=== PATIENT | female | born 1990 | race Caucasian/White ===

== ENCOUNTER → 2017-08-25 | Outpatient (REF) | payer OTHER | LOC: M LAB REF 13:36 | DX: Z12.4 Encounter for screening for malignant neoplasm of cervix (principal) ==

== ENCOUNTER → 2018-02-02 | Outpatient (REF) | payer OTHER ==
[2018-02-02 16:49] LABS: BASO # 0.1 10^3/uL (0.0-0.2); BASO % 0.8 % (0.0-1.0); EOS # 0.1 10^3/uL (0.0-0.50); EOS % 1.5 % (0.0-3.0); HEMATOCRIT 42.4 % (36.0-47.0); HEMOGLOBIN 13.8 g/dl (12.0-15.5); IMMATURE GRANULOCYTE % 1.8 % (0-3.0); LYMPH # 1.8 10^3/uL (1.5-6.5); LYMPH % 24.7 % (24.0-44.0); MEAN CORPUSCULAR HEMOGLOBIN 29.7 pg (27.0-33.0); MEAN CORPUSCULAR HGB CONC 32.5 g/dl (32.0-36.5); MEAN CORPUSCULAR VOLUME 91.4 fl (80.0-96.0); MONO # 0.5 10^3/uL (0.0-0.8); MONO % 6.3 % (0.0-5.0); NEUTROPHILS # 4.7 10^3/uL (1.8-7.7); NEUTROPHILS % 64.9 % (36.0-66.0); PLATELET COUNT, AUTOMATED 253 10^3/uL (150-450); RED BLOOD COUNT 4.64 10^6/uL (4.00-5.40); RED CELL DISTRIBUTION WIDTH 13.1 % (11.5-14.5); WHITE BLOOD COUNT 7.3 10^3/uL (4.0-10.0)
[2018-02-02 17:04] LABS: INR 0.93; PROTHROMBIN TIME 12.6 SECONDS (12.1-14.4)
[2018-02-02 17:05] LABS: PARTIAL THROMBOPLASTIN TIME 28.1 SECONDS (25.4-37.6)
[2018-02-02 17:09] LABS: ALBUMIN 3.8 GM/DL (3.2-5.2); ALBUMIN/GLOBULIN RATIO 1.06 (1.00-1.93); ALKALINE PHOSPHATASE 89 U/L (45-117); ALT/SGPT 26 U/L (12-78); ANION GAP 8 MEQ/L (8-16); AST/SGOT 12 U/L (7-37); BILIRUBIN,TOTAL 0.4 MG/DL (0.2-1.0); BLOOD UREA NITROGEN 13 MG/DL (7-18); CALCIUM LEVEL 9.2 MG/DL (8.5-10.1); CARBON DIOXIDE LEVEL 28 MEQ/L (21-32); CHLORIDE LEVEL 106 MEQ/L (98-107); GLOMERULAR FILTRATION RATE > 60.0 (>60); GLUCOSE, FASTING 82 MG/DL (70-100); POTASSIUM SERUM 4.2 MEQ/L (3.5-5.1); SODIUM LEVEL 142 MEQ/L (136-145); TOTAL PROTEIN 7.4 GM/DL (6.4-8.2)
== END ==
LOC: M SFHCCLAY 12:11
DX: R23.8 Other skin changes (principal)

== ENCOUNTER 2019-01-14 07:30 | Emergency (ER) | payer MEDICAID, OTHER, SELFPAY ==
[~2019-01-14] VITALS: Ht 167.6 cm; Wt 103.5 kg
[2019-01-14 09:32] LABS: BASO # 0.1 10^3/uL (0.0-0.2); BASO % 0.8 % (0.0-1.0); EOS # 0.1 10^3/uL (0.0-0.50); EOS % 1.1 % (0.0-3.0); HEMATOCRIT 40.2 % (36.0-47.0); LYMPH # 1.6 10^3/uL (1.5-4.5); LYMPH % 22.7 % (24.0-44.0); MEAN CORPUSCULAR HEMOGLOBIN 30.1 pg (27.0-33.0); MEAN CORPUSCULAR HGB CONC 32.3 g/dl (32.0-36.5); MEAN CORPUSCULAR VOLUME 93.1 fl (80.0-96.0); MONO # 0.5 10^3/uL (0.0-0.8); MONO % 6.4 % (0.0-5.0); NEUTROPHILS # 4.8 10^3/uL (1.8-7.7); NEUTROPHILS % 67.1 % (36.0-66.0); PLATELET COUNT, AUTOMATED 211 10^3/uL (150-450); RED BLOOD COUNT 4.32 10^6/uL (4.00-5.40); WHITE BLOOD COUNT 7.2 10^3/uL (4.0-10.0)
--- NOTE | 2019-01-14 10:52 | REP ---
PELVIC ULTRASOUND: Real-time sonographic evaluation of the pelvis performed utilizing transabdominal and endovaginal technique. The uterus measures 8.9 x 4.1 x 5.8 cm. Endometrial thickness is 8 mm. There is no intrauterine gestational sac seen. Right ovary measures 2.9 x 1.9 x 2.8 cm and left ovary 2.7 x 2.0 x 1.3 cm. Complex cyst area in the right ovary probably represents a complex corpus luteum 1.4 cm in diameter. No adnexal mass is seen. There is trace free fluid. There is no evidence of ovarian torsion. Differential diagnosis would include early intrauterine , missed AB or ectopic . Suggest correlation with serial quantitative beta HCG values, and followup ultrasound as necessary. Electronically Signed by Bobby Jarvis MD 01/15/2019 03:36 P
[2019-01-14 10:54] VITALS: BP 126/79
== END 2019-01-14 10:55 | disposition home or self-care (01) ==
LOC: M ED 07:30
DX: O20.0 Threatened abortion (principal); O34.80 Maternal care for other abnormalities of pelvic organs, unspecified trimester; Z86.19 Personal history of other infectious and parasitic diseases; Z87.59 Personal history of other complications of pregnancy, childbirth and the puerperium; Z88.2 Allergy status to sulfonamides

== ENCOUNTER → 2019-01-14 | Outpatient (REF) | payer MEDICAID | LOC: M LAB REF 14:04 | PROVIDERS: ATTEND Advanced Practice Midwife | DX: O03.4 Incomplete spontaneous abortion without complication (principal) ==

== ENCOUNTER → 2019-01-21 | Outpatient (CLI) | payer MEDICAID | LOC: M LAB 11:21 | PROVIDERS: ATTEND Advanced Practice Midwife | DX: O03.4 Incomplete spontaneous abortion without complication (principal) ==

== ENCOUNTER → 2019-01-28 | Outpatient (CLI) | payer MEDICAID | LOC: M LAB 07:25 | PROVIDERS: ATTEND Advanced Practice Midwife | DX: O03.4 Incomplete spontaneous abortion without complication (principal) ==

== ENCOUNTER → 2019-04-05 | Outpatient (REF) | payer OTHER ==
[2019-04-09 14:40] LABS: HPV HYBRID CAPTURE II Negative (Negative)
== END ==
LOC: M LAB REF 17:40
PROVIDERS: ATTEND Advanced Practice Midwife
DX: Z12.4 Encounter for screening for malignant neoplasm of cervix (principal)

== ENCOUNTER 2020-06-04 09:48 | Inpatient (IN) | payer OTHER ==
[~2020-06-04] VITALS: Ht 167.6 cm; Wt 116.6 kg
[2020-06-04] MEDS ORDERED: BUSP1TAB PO (09:59)
[2020-06-04] MEDS ORDERED: LORA2TAB14 PO (09:59)
[2020-06-04] MEDS ORDERED: ONDANSETRON 4MG/2ML VIAL IV ONE (10:15)
[2020-06-04] MEDS ORDERED: NS 1,000 ML IV ONE ×3 (10:15→13:30)
[2020-06-04] MEDS ORDERED: KETOROLAC 30 MG/ML 1ML VIAL IV ONE ×2 (10:15→14:30)
[2020-06-04] MEDS: MORPHINE 2 MG/ML 1ML VIAL (J2270) IV PRN ×2 (10:31→11:34)
[2020-06-04 10:56] LABS: BASO # 0.1 10^3/uL (0.0-0.2); BASO % 0.9 % (0.0-1.0); EOS # 0.1 10^3/uL (0.0-0.5); EOS % 0.5 % (0.0-3.0); HEMATOCRIT 38.6 % (36.0-47.0); HEMOGLOBIN 12.3 g/dl (12.0-15.5); LYMPH # 2.4 10^3/uL (1.5-5.0); LYMPH % 24.4 % (24.0-44.0); MEAN CORPUSCULAR HEMOGLOBIN 28.1 pg (27.0-33.0); MEAN CORPUSCULAR HGB CONC 31.9 g/dl (32.0-36.5); MEAN CORPUSCULAR VOLUME 88.1 fl (80.0-96.0); MONO # 0.5 10^3/uL (0.0-0.8); MONO % 5.6 % (0.0-5.0); NEUTROPHILS # 6.5 10^3/uL (1.5-8.5); NEUTROPHILS % 67.4 % (36.0-66.0); PLATELET COUNT, AUTOMATED 217 10^3/uL (150-450); RED BLOOD COUNT 4.38 10^6/uL (4.00-5.40); WHITE BLOOD COUNT 9.7 10^3/uL (4.0-10.0)
[2020-06-04] MEDS ORDERED: MORPHINE 4 MG/ML 1ML VIAL/SYRINGE (J2270) IV ONE (11:15)
--- NOTE | 2020-06-04 11:16 | REP ---
INDICATION: ruq pain. COMPARISON: None. TECHNIQUE: Real-time sonographic evaluation of right upper quadrant performed. FINDINGS: There are multiple innumerable small gallstones in the gallbladder.. The common bile duct is slightly prominent in diameter 8 mm. No intrahepatic biliary dilatation is seen. The liver demonstrates homogeneous echotexture with no gross mass. The pancreas is not visualized due to overlying bowel gas. The right kidney demonstrates no hydronephrosis, with a normal size of 10.3 cm in length. No free fluid is seen. IMPRESSION: Multiple gallstones in the gallbladder. No gallbladder wall thickening. No pericholecystic fluid. Slight dilatation of the common bile duct at 8 mm. <Electronically signed by Bobby Jarvis > 06/04/20 111
[2020-06-04 11:27] LABS: HCG, SERUM QUALITATIVE NEGATIVE (NEGATIVE)
[2020-06-04 11:30] LABS: ALBUMIN 3.9 GM/DL (3.2-5.2); ALT/SGPT 37 U/L (12-78); BILIRUBIN,DIRECT 0.2 MG/DL (0.0-0.2); BILIRUBIN,TOTAL 0.4 MG/DL (0.2-1.0); BLOOD UREA NITROGEN 17 MG/DL (7-18); CALCIUM LEVEL 9.1 MG/DL (8.5-10.1); CARBON DIOXIDE LEVEL 26 MEQ/L (21-32); CHLORIDE LEVEL 108 MEQ/L (98-107); CREATININE FOR GFR 0.99 MG/DL (0.55-1.30); GLOMERULAR FILTRATION RATE > 60.0 (>60); GLUCOSE, FASTING 118 MG/DL (70-100); LIPASE 111 U/L (73-393); POTASSIUM SERUM 4.2 MEQ/L (3.5-5.1); SODIUM LEVEL 138 MEQ/L (136-145); TOTAL PROTEIN 7.2 GM/DL (6.4-8.2)
[2020-06-04] MEDS ORDERED: KETOROLAC 30 MG/ML 1ML VIAL IV PRN (13:30)
[2020-06-04] MEDS ORDERED: MORPHINE 4 MG/ML 1ML VIAL/SYRINGE (J2270) IV PRN (13:30)
[2020-06-04] MEDS ORDERED: ERYT2GEL TOP (13:55)
--- NOTE | 2020-06-04 14:26 | HPEPDOC ---
[facility] Medical History & Physical Date of Admission Jun 04, 2020 Date of Service: Jun 04, 2020 History and Physical CHIEF COMPLAINT: Abdominal pain HISTORY OF PRESENT ILLNESS: This 30-year-old obese female. BMI 41.0, history of MRSA in the left buttock abscess in 2014, breast reduction, right shoulder repair, wisdom teeth extraction, tonsillectomy, adenoidectomy and 2 miscarriages was in her usual state of health until about 2 weeks ago when she felt a lot of indigestion and epigastric and right upper quadrant discomfort which abated without intervention. Today blood work. Patient had epigastric right upper quadrant abdominal pain described as sharp, radiating across the abdomen into the back, accompanied with 8 episodes of emesis. Ileus while she was at work without fever or chills. Patient admits to feeling flatulence had a normal bowel movement yesterday but has noted oily stools in the past couple weeks. No medications were taken side from her usual medications including Ativan, which she took on an empty stomach and thought was the cause for her abdominal pain today. Patient presented to the emergency room for evaluation, was found to have choledocholithiasis with an 8 mm CBD. Hospitalist was asked to admit the patient for choledo cholelithiasis without acute cholecystitis or cholangitis. Patient otherwise denies any shortness of breath, chest pain, pressure, tightness, lightheadedness, dizziness. She denies any diarrhea or constipation, dysuria, urgency, frequency, weight gain, weight loss, changes in appetite, vision, hearing loss, tinnitus or ear discharge. Denies bilateral upper or lower extremity paresthesias or weakness. In the emergency room, patient had no white count or fever. No antibiotics were given. She had some relief with IV morphine, Toradol. PAST MEDICAL HISTORY: , Obesity, BMI 41. MRSA abscess in the right buttock 2014 PAST SURGICAL HISTORY: 2 miscarriages. Right buttock abscess with MRSA 2014, breast reduction surgery 2008. Bone graft 2006. 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 Social alcohol use. No recreational drug use. No history of cigarette use FAMILY HISTORY: . Mother cancer when the patient was 11 years old. She in her 40s. Father with A. fib, alive ALLERGIES: Please see below. REVIEW OF SYSTEMS: 10 point systems negative aside from positive findings in HPI. HOME MEDICATIONS: Please see below. PHYSICAL EXAMINATION: VITAL SIGNS: See below GENERAL APPEARANCE: No distress. Awake, alert, oriented 3. No conversational dyspnea. No icterus or jaundice HEENT: Extra muscles are intact. Dry mucous membranes. Neck supple, full range of motion. No cervical lymphadenopathy or thyromegaly. No JVD . CARDIOVASCULAR: S1, S2, sinus rhythm, no murmurs, rubs or gallops LUNGS: Clear to auscultation. Wheezing, rales or rhonchi ABDOMEN: Soft, tender epigastric, right upper quadrant rebound, guarding. Positive bowel sounds EXTREMITIES: No cyanosis, clubbing or pitting edema NEUROLOGICAL:No focal deficits. Motor function 5 out of 54 extremities. No sensory disturbance face is symmetric. Tongue is midline. No pronator drift PSYCHIATRIC: Anxious and tearful. LABORATORY DATA: See below. IMAGIN06/04/20 GALLBLADDER ULTRASOUND Real-time sonographic evaluation of right upper quadrant performed. FINDINGS: There are multiple innumerable small gallstones in the gallbladder.. The common bile duct is slightly prominent in diameter 8 mm. No intrahepatic biliary dilatation is seen. The liver demonstrates homogeneous echotexture with no gross mass. The pancreas is not visualized due to overlying bowel gas. The right kidney demonstrates no hydronephrosis, with a normal size of 10.3 cm in length. No free fluid is seen. IMPRESSION: Multiple gallstones in the gallbladder. No gallbladder wall thickening. No pericholecystic fluid. Slight dilatation of the common bile duct at 8 mm. MICROBIOLOGY: Please see below. ASSESSMENT: This 30-year-old obese female. BMI 41.0, history of MRSA in the left buttock abscess in 2015, breast reduction, right shoulder repair, wisdom teeth extraction, tonsillectomy, adenoidectomy and 2 miscarriages was in her usual state of health until about 2 weeks ago when she felt a lot of indigestion and epigastric and right upper quadrant discomfort which abated without intervention. Today blood work. Patient had epigastric right upper quadrant abdominal pain described as sharp, radiating across the abdomen into the back, accompanied with 8 episodes of emesis. Ileus while she was at work without fever or chills. Patient admits to feeling flatulence had a normal bowel movement yesterday but has noted oily stools in the past couple weeks. No medications were taken side from her usual medications including Ativan, which she took on an empty stomach and thought was the cause for her abdominal pain today. Patient presented to the emergency room for evaluation, was found to have choledocholithiasis with an 8 mm CBD. Hospitalist was asked to admit the patient for choledo cholelithiasis without acute cholecystitis or cholangitis. Patient otherwise denies any shortness of breath, chest pain, pressure, tightness, lightheadedness, dizziness. She denies any diarrhea or constipation, dysuria, urgency, frequency, weight gain, weight loss, changes in appetite, vision, hearing loss, tinnitus or ear discharge. Denies bilateral upper or lower extremity paresthesias or weakness. In the emergency room, patient had no white count or fever. No antibiotics were given. She had some relief with IV morphine, Toradol. Choledocholithiasis without cholecystitis or cholangitis , Morbid obesity, BMI 41 Anxiety History of MRSA infection PLAN: , Nothing by mouth, IV fluids, when necessary pain medications. JOHN protocol. Monitor for respiratory acidosis. Her hypercapnic respiratory failure. In light of morbid obesity and use of opioids. MRCP gastroenterology consult for possible ERCP if CBD dilatation is seen on MRCP and general surgery consult for laparoscopic cholecystectomy. Compression stockings for DVT prophylaxis. No Lovenox or heparin due to possible ERCP of microscopic cholecystectomy. Continue all other home medications. Full code. Check coronavirus and MRSA. No empiric antibiotics as the patient does not have a white count or fever to suggest cholangitis area . Vital Signs Vital Signs Date Time Temp Pulse Resp B/P (MAP) Pulse Ox O2 Delivery O2 Flow Rate FiO2 06/04/20 13:40 20 Room Air 06/04/20 12:30 68 116/71 (86) 100 06/04/20 09:49 96.4 Laboratory Data Labs 24H Laboratory Tests 2 06/04/20 10:25: Immature Granulocyte % (Auto) 1.2, Neutrophils (%) (Auto) 67.4H, Lymphocytes (%) (Auto) 24.4, Monocytes (%) (Auto) 5.6H, Eosinophils (%) (Auto) 0.5, Basophils (%) (Auto) 0.9, Neutrophils # (Auto) 6.5, Lymphocytes # (Auto) 2.4, Monocytes # (Auto) 0.5, Eosinophils # (Auto) 0.1, Basophils # (Auto) 0.1, Nucleated Red Blood Cells % (auto) 0.0, Urine Color YELLOW, Urine Appearance CLOUDYH, Urine pH 5.0, Urine Specific [place] 1.030, Urine Protein 1+H, Urine Glucose (UA) NEGATIVE, Urine Ketones NEGATIVE, Urine Blood NEGATIVE, Urine Nitrite NEGATIVE, Urine Bilirubin NEGATIVE, Urine Urobilinogen 2.0H, Urine Leukocyte Esterase NEGATIVE, Urine WBC (Auto) 3, Urine RBC (Auto) 1, Urine Hyaline Casts (Auto) 0, Urine Bacteria (Auto) 1+H, Urine Squamous Epithelial Cells 28, Urine Mucus (Auto) SMALL, Urine Sperm (Auto) , Anion Gap 4L, Glomerular Filtration Rate > 60.0, Calcium Level 9.1, Total Bilirubin 0.4, Direct Bilirubin 0.2, Aspartate Amino Transf (AST/SGOT) 44H, Alanine Aminotransferase (ALT/SGPT) 37, Alkaline Phosphatase 110, Total Protein 7.2, Albumin 3.9, Albumin/Globulin Ratio 1.2, Lipase 111, Human Chorionic Gonadotropin, Qual NEGATIVE CBC/BMP Laboratory Tests 06/04/20 10:25 Home Medications Scheduled Buspirone HCl (Buspirone HCl) 7.5 Mg Tablet, 7.5 MG PO BID Erythromycin Base in Ethanol (Erythromycin 2% Gel) 30 Gm Gel..gram., 1 APLCT TOP DAILY APPLY TO FACE Scheduled PRN Lorazepam (Lorazepam) 2 Mg Tablet, 1 MG PO QID PRN for ANXIETY Allergies Coded Allergies: Sulfa (Sulfonamide Antibiotics) (Verified Allergy, Mild, rash and itching, 01/14/19) A-FIB/CHADSVASC A-FIB History Current/History of A-Fib/PAF?: No Current PO Anticoag Therapy: No Age/Risk Factor Scoring CHADSVASC: CHADSVASC Response (Comments) Value Age Risk Factor Age < 65 years old 0 Gender Risk Factor Female 1 Hx of CHF No 0 Hx of HTN No 0 Hx of Stroke/TIA/or VTE No 0 Hx of Diabetes No 0 Hx of Vascular Disease No 0 Total 1 Treatment Treatment ordered: NONE JEROD RODARTE MD Jun 04, 2020 14:26
[2020-06-04] MEDS ORDERED: MORPHINE 30 MG TAB **MSIR PO ONE (14:30)
[2020-06-04] MEDS ORDERED: LORazepam 1 MG TAB PO PRN (14:30)
--- NOTE | 2020-06-04 15:24 | REP ---
INDICATION: choledocholithiasis r/o cbd dilation. COMPARISON: Comparison is made with the right upper quadrant sonography from earlier this date.. TECHNIQUE: Axial and coronal T2 weighted scans are acquired. In addition, a T2 weighted MRCP acquisition is acquired and maximum intensity projection images are generated. FINDINGS: There are multiple small gallstones distributed in the lumen of the gallbladder. The gallbladder appears mildly distended and there is a fundal fold in the gallbladder. No wall thickening is seen however. There is no evidence of intrahepatic biliary ductal dilation. Is a small round filling defect located in the distal common bile duct. This filling defect is seen size as they gallstone seen in the lumen of the gallbladder. The findings are consistent with choledocholithiasis. The common bile duct is mildly prominent measuring 8 mm. No pancreatic ductal dilation is seen. No mass lesion is observed. There is an incidental finding. A T2 hyperintense oval-shaped lesion is noted in the right anterior paraspinal region of the midthoracic spine. This measures 18 x 7 by 13 mm. This may be a neurogenic tumor such is neuroma or ganglioma. IMPRESSION: 1. Choledocholithiasis. There is a single small spur stone in the distal choledochocele. 8 mm CBD. No intrahepatic ductal dilation. 2. Cholelithiasis. 3. 18 mm midthoracic spine paraspinal lesion. Cyst versus neurogenic tumor. Recommend MRI midthoracic spine without and with intravenous gadolinium. Alternatively, contrast-enhanced chest CT study could be performed. <Electronically signed by David Khalil > 06/04/20 [id number]
[2020-06-04 16:28] VITALS: BP 119/81
[2020-06-04] MEDS ORDERED: PILL CUTTER 1 EACH XX PRN (17:15)
[2020-06-04 19:03] LABS: ALBUMIN 3.3 GM/DL (3.2-5.2); BILIRUBIN,DIRECT 0.8 MG/DL (0.0-0.2); BILIRUBIN,TOTAL 1.2 MG/DL (0.2-1.0); TOTAL PROTEIN 6.2 GM/DL (6.4-8.2)
[2020-06-04 20:47] VITALS: BP 118/79
[2020-06-04] MEDS: D5W/0.45% SODIUM CHLORIDE 1,000 ML IV SCH (20:51)
[2020-06-04] MEDS: busPIRone 5 MG TAB PO SCH (20:51)
[2020-06-04] MEDS: MORPHINE 30 MG TAB **MSIR PO PRN (22:14)
[2020-06-05] MEDS: D5W/0.45% SODIUM CHLORIDE 1,000 ML IV SCH ×4 (02:50→16:10)
[2020-06-05] MEDS: ONDANSETRON 4MG/2ML VIAL IV PRN ×2 (05:56→14:19)
[2020-06-05 06:00] VITALS: BP 117/79
[2020-06-05 07:02] LABS: BASO # 0.1 10^3/uL (0.0-0.2); BASO % 1.1 % (0.0-1.0); EOS # 0.1 10^3/uL (0.0-0.5); HEMATOCRIT 36.7 % (36.0-47.0); HEMOGLOBIN 11.2 g/dl (12.0-15.5); LYMPH # 1.3 10^3/uL (1.5-5.0); LYMPH % 29.2 % (24.0-44.0); MEAN CORPUSCULAR HEMOGLOBIN 27.7 pg (27.0-33.0); MEAN CORPUSCULAR HGB CONC 30.5 g/dl (32.0-36.5); MEAN CORPUSCULAR VOLUME 90.6 fl (80.0-96.0); MONO # 0.4 10^3/uL (0.0-0.8); MONO % 9.2 % (0.0-5.0); NEUTROPHILS # 2.6 10^3/uL (1.5-8.5); PLATELET COUNT, AUTOMATED 156 10^3/uL (150-450); RED BLOOD COUNT 4.05 10^6/uL (4.00-5.40); WHITE BLOOD COUNT 4.6 10^3/uL (4.0-10.0)
[2020-06-05 07:18] LABS: HEMOGLOBIN A1c 5.4 %
[2020-06-05 07:37] LABS: ALBUMIN 2.9 GM/DL (3.2-5.2); ALT/SGPT 432 U/L (12-78); BILIRUBIN,TOTAL 2.1 MG/DL (0.2-1.0); BLOOD UREA NITROGEN 7 MG/DL (7-18); CALCIUM LEVEL 8.2 MG/DL (8.5-10.1); CARBON DIOXIDE LEVEL 25 MEQ/L (21-32); CHLORIDE LEVEL 111 MEQ/L (98-107); CHOLESTEROL LEVEL 108 MG/DL (<200); CHOLESTEROL RISK RATIO 1.963 (<5); CREATININE FOR GFR 0.83 MG/DL (0.55-1.30); GLOMERULAR FILTRATION RATE > 60.0 (>60); GLUCOSE, FASTING 111 MG/DL (70-100); HDL CHOLESTEROL 55 MG/DL (>40); LDL CHOLESTEROL 39 MG/DL (<100); NON-HDL-C 53 MG/DL; POTASSIUM SERUM 3.9 MEQ/L (3.5-5.1); SODIUM LEVEL 141 MEQ/L (136-145); TOTAL PROTEIN 6.2 GM/DL (6.4-8.2); TRIGLYCERIDES LEVEL 69 MG/DL (<150)
[2020-06-05] MEDS ORDERED: MORPHINE 4 MG/ML 1ML VIAL/SYRINGE (J2270) IV ONE (07:45)
[2020-06-05] MEDS ORDERED: METOCLOPRAMIDE INJ 10MG/2ML VIAL (J2765 PER 1) IV ONE (07:45)
--- NOTE | 2020-06-05 08:00 | CR.PDOC ---
General Surgery Consultation Date of Consultation 06/05/20 History and Physical CONSULT REPORT FOR: Mayi Clarke MD (hospitalist service) REASON FOR CONSULTATION: gallstones HISTORY OF PRESENT ILLNESS: I was asked to consult on Ms. Leon who is currently admitted under the hospitalist service for about a 2 week history of epigastric abdominal pain that worsened yesterday prompting the ER visit and subsequent admission. She is a 30- year-old obese female. BMI 41.0, was in her usual state of health until about 2 weeks ago when she felt a lot of indigestion and epigastric and right upper quadrant discomfort which abated without intervention. Yesterday while at work she had sudden onset of severe epigastric pain radiating to her mid back area associated with nausea, cold clammy sweats, vomiting. She reports a prior episodes of similar symptoms. She presented herself to the emergency room and was found to have evidence for choledocholithiasis as well as cholelithiasis. She denies any prior postprandial type of discomfort before 2 weeks ago, any problems with fatty food intake. She denies any unexplained weight loss. She has no prior abdominal surgeries. She is currently scheduled to undergo ERCP later on today by Dr. Pelletier. PAST MEDICAL HISTORY: 1. Morbid obesity with a BMI of 41.5 PAST SURGICAL HISTORY: 2 miscarriages. Right buttock abscess with MRSA 2014, breast reduction surgery 2008. Bone graft 2006. 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 Social alcohol use. No recreational drug use. No history of cigarette use FAMILY HISTORY: . Mother cancer when the patient was 11 years old. She in her 40s. Father with A. fib, alive ALLERGIES: Please see below. REVIEW OF SYSTEMS: Patient denies fevers or chills, any recent illness. She is maintaining her weight. Denies any unexplained weight loss. Denies any shortness of breath and effort. She denies any obstructive sleep apnea symptoms. Denies any chest pain, able to lay down flat on bed. No prior episodes of similar abdominal symptoms. She denies bleeding with bowel movements. She denies any changes in bowel habits or appearance of her stool. She denies any dysuria, hematuria or nocturia. Denies any leg swelling. HOME MEDICATIONS: Please see below. PHYSICAL EXAMINATION: VITAL SIGNS: See below GENERAL APPEARANCE: Patient looks comfortable in bed. Reports some mild nagging epigastric discomfort though the main waves of pain that she experienced yesterday seems to have resolved. She is pleasant and cooperative. HEENT: She has an anicteric sclerae. Lips and mucosa appears moist. CARDIOVASCULAR: Regular heart rate and rhythm LUNGS: Clear to auscultation. Wheezing, rales or rhonchi ABDOMEN: Abdomen is nondistended, soft, tender on palpation over the mid epigastric area without any rebound or guarding. Nontender over the right upper quadrant area. Negative Hamlin sign. No prior surgical scars or any umbilical or ventral herniations. EXTREMITIES: No significant extremity edema NEUROLOGICAL: Awake, alert and oriented LABORATORY DATA: See below. IMAGIN06/04/20 GALLBLADDER ULTRASOUND Real-time sonographic evaluation of right upper quadrant performed. FINDINGS: There are multiple innumerable small gallstones in the gallbladder.. The common bile duct is slightly prominent in diameter 8 mm. No intrahepatic biliary dilatation is seen. The liver demonstrates homogeneous echotexture with no gross mass. The pancreas is not visualized due to overlying bowel gas. The right kidney demonstrates no hydronephrosis, with a normal size of 10.3 cm in length. No free fluid is seen. IMPRESSION: Multiple gallstones in the gallbladder. No gallbladder wall thickening. No pericholecystic fluid. Slight dilatation of the common bile duct at 8 mm. MICROBIOLOGY: Please see below. ASSESSMENT: Choledocholithiasis Cholelithiasis Morbid obesity Patient symptoms consistent with transient passage of gallstones into her biliary tree causing obstruction to the level of the distal common bile duct. She has acute elevations of her liver function test consistent with this. She does not really describe any long-standing biliary colic type symptoms. She scheduled to undergo ERCP and possibly stone extraction today. If she does okay with this procedure, she can go home. I'll have my office arrange for an outpatient surgery. I have obtained consent for the cholecystectomy. I discussed with the patient the details of the proposed procedure, the benefits of performing the procedure, the most common risks on doing the procedure. This may include risks for bile duct injury, bile leakage, injury to nearby bowels, blood vessels. Risks of general anesthesia, common expectations after gallbladder surgery. I have given her a chance to ask questions, voice out concerns. Patient has agreed to proceed Vital Signs Vital Signs Date Time Temp Pulse Resp B/P (MAP) Pulse Ox O2 Delivery O2 Flow Rate FiO2 06/05/20 06:00 97.8 69 18 117/79 (92) 100 Room Air I&Os I&O- Last 24 Hours up to 6 AM 06/05/20 06:00 Intake Total 1300 ml Balance 1300 ml Laboratory Data Labs 24H Laboratory Tests 2 06/04/20 10:25: Immature Granulocyte % (Auto) 1.2, Neutrophils (%) (Auto) 67.4H, Lymphocytes (%) (Auto) 24.4, Monocytes (%) (Auto) 5.6H, Eosinophils (%) (Auto) 0.5, Basophils (%) (Auto) 0.9, Neutrophils # (Auto) 6.5, Lymphocytes # (Auto) 2.4, Monocytes # (Auto) 0.5, Eosinophils # (Auto) 0.1, Basophils # (Auto) 0.1, Nucleated Red Blood Cells % (auto) 0.0, Urine Color YELLOW, Urine Appearance CLOUDYH, Urine pH 5.0, Urine Specific [place] 1.030, Urine Protein 1+H, Urine Glucose (UA) NEGATIVE, Urine Ketones NEGATIVE, Urine Blood NEGATIVE, Urine Nitrite NEGATIVE, Urine Bilirubin NEGATIVE, Urine Urobilinogen 2.0H, Urine Leukocyte Esterase NEGATIVE, Urine WBC (Auto) 3, Urine RBC (Auto) 1, Urine Hyaline Casts (Auto) 0, Urine Bacteria (Auto) 1+H, Urine Squamous Epithelial Cells 28, Urine Mucus (Auto) SMALL, Urine Sperm (Auto) , Anion Gap 4L, Glomerular Filtration Rate > 60.0, Calcium Level 9.1, Total Bilirubin 0.4, Direct Bilirubin 0.2, Aspartate Amino Transf (AST/SGOT) 44H, Alanine Aminotransferase (ALT/SGPT) 37, Alkaline Phosphatase 110, Total Protein 7.2, Albumin 3.9, Albumin/Globulin Ratio 1.2, Lipase 111, Human Chorionic Gonadotropin, Qual NEGATIVE 06/04/20 14:15: Coronavirus (COVID-19)(PCR) NEGATIVE, Influenza Type A (RT-PCR) NEGATIVE, Influenza Type B (RT-PCR) NEGATIVE, Respiratory Syncytial Virus (PCR) NEGATIVE 06/04/20 17:24: Methicillin-Resist S.aureus DNA PCR NOT DETECTED 06/04/20 18:19: Total Bilirubin 1.2#H, Direct Bilirubin 0.8H, Aspartate Amino Transf (AST/SGOT) 533H, Alanine Aminotransferase (ALT/SGPT) 331H, Alkaline Phosphatase 120H, Total Protein 6.2L, Albumin 3.3, Albumin/Globulin Ratio 1.1L 06/05/20 06:35: Immature Granulocyte % (Auto) 1.5, Neutrophils (%) (Auto) 57.0, Lymphocytes (%) (Auto) 29.2, Monocytes (%) (Auto) 9.2H, Eosinophils (%) (Auto) 2.0, Basophils (%) (Auto) 1.1H, Neutrophils # (Auto) 2.6, Lymphocytes # (Auto) 1.3L, Monocytes # (Auto) 0.4, Eosinophils # (Auto) 0.1, Basophils # (Auto) 0.1, Nucleated Red Blood Cells % (auto) 0.0, Anion Gap 5L, Glomerular Filtration Rate > 60.0, Estimated Mean Plasma Glucose 108, Hemoglobin A1c 5.4, Calcium Level 8.2L, Total Bilirubin 2.1#H, Aspartate Amino Transf (AST/SGOT) 387H, Alanine Aminotransferase (ALT/SGPT) 432H, Alkaline Phosphatase 139H, Total Protein 6.2L, Albumin 2.9L, Albumin/Globulin Ratio 0.9L, Triglycerides Level 69, Total Cholesterol 108, LDL Cholesterol 39, Non-HDL Cholesterol (LDL + VLDL) 53, Total HDL Cholesterol 55, Cholesterol/HDL Ratio 1.963, Thyroid Stimulating Hormone (TSH) 2.450 CBC/BMP Laboratory Tests 06/04/20 10:25 06/05/20 06:35 Home Medications Scheduled Buspirone HCl (Buspirone HCl) 7.5 Mg Tablet, 7.5 MG PO BID, (Reported) Erythromycin Base in Ethanol (Erythromycin 2% Gel) 30 Gm Gel..gram., 1 APLCT TOP DAILY, (Reported) APPLY TO FACE Scheduled PRN Lorazepam (Lorazepam) 2 Mg Tablet, 1 MG PO QID PRN for ANXIETY, (Reported) Allergies Coded Allergies: Sulfa (Sulfonamide Antibiotics) (Verified Allergy, Mild, rash and itching, 01/14/19) ERIK ROCHA MD Jun 05, 2020 08:00
[2020-06-05] MEDS: busPIRone 5 MG TAB PO SCH ×2 (09:05→21:00)
[2020-06-05] MEDS: ERYTHROMYCIN 2 % GEL 30GM TOP SCH (09:05)
--- NOTE | 2020-06-05 09:24 | IPNPDOC ---
Date Seen The patient was seen on 06/05/20. Progress Note SUBJECTIVE: Complain of epigastric abdominal pain all night last night alleviated with pain medications and decreased from 7 out of 10-3 out of 10 on a pain scale had persistent nausea, was given Zofran this morning , No fever, chills OBJECTIVE: Physical exam: VITAL SIGNS: See below GENERAL APPEARANCE: Cooperative No distress. Awake, alert, oriented 3., Conversant No conversational dyspnea. No icterus or jaundice HEENT: Extra muscles are intact., Moist mucous membranes. Neck supple, full range of motion. No cervical lymphadenopathy or thyromegaly. No JVD . CARDIOVASCULAR: S1, S2, sinus rhythm, no murmurs, rubs or gallops LUNGS: Clear to auscultation. Wheezing, rales or rhonchi ABDOMEN: Soft, tender epigastric, right upper quadrant rebound, guarding. Positive bowel sounds EXTREMITIES: No cyanosis, clubbing or pitting edema NEUROLOGICAL:No focal deficits. Motor function 5 out of 54 extremities. No sensory disturbance face is symmetric. Tongue is midline. No pronator drift PSYCHIATRIC: Anxious and tearful. LABORATORY DATA: See below. IMAGIN06/04/20 GALLBLADDER ULTRASOUND Real-time sonographic evaluation of right upper quadrant performed. FINDINGS: There are multiple innumerable small gallstones in the gallbladder.. The common bile duct is slightly prominent in diameter 8 mm. No intrahepatic biliary dilatation is seen. The liver demonstrates homogeneous echotexture with no gross mass. The pancreas is not visualized due to overlying bowel gas. The right kidney demonstrates no hydronephrosis, with a normal size of 10.3 cm in length. No free fluid is seen. IMPRESSION: Multiple gallstones in the gallbladder. No gallbladder wall thickening. No pericholecystic fluid. Slight dilatation of the common bile duct at 8 mm. MICROBIOLOGY: Please see below. ASSESSMENT: This 30-year-old obese female. BMI 41.0, history of MRSA in the left buttock abscess in 2015, breast reduction, right shoulder repair, wisdom teeth extraction, tonsillectomy, adenoidectomy and 2 miscarriages was in her usual state of health until about 2 weeks ago when she felt a lot of indigestion and epigastric and right upper quadrant discomfort which abated without intervention. Today blood work. Patient had epigastric right upper quadrant abdominal pain described as sharp, radiating across the abdomen into the back, accompanied with 8 episodes of emesis. Ileus while she was at work without fever or chills. Patient admits to feeling flatulence had a normal bowel movement yesterday but has noted oily stools in the past couple weeks. No medications were taken side from her usual medications including Ativan, which she took on an empty stomach and thought was the cause for her abdominal pain today. Patient presented to the emergency room for evaluation, was found to have ch oledocholithiasis with an 8 mm CBD. Hospitalist was asked to admit the patient for choledo cholelithiasis without acute cholecystitis or cholangitis. Patient otherwise denies any shortness of breath, chest pain, pressure, tightness, lightheadedness, dizziness. She denies any diarrhea or constipation, dysuria, urgency, frequency, weight gain, weight loss, changes in appetite, vision, hearing loss, tinnitus or ear discharge. Denies bilateral upper or lower extremity paresthesias or weakness. In the emergency room, patient had no white count or fever. No antibiotics were given. She had some relief with IV morphine, Toradol. Choledocholithiasis without cholecystitis or cholangitis Morbid obesity, BMI 41 Anxiety History of MRSA infection PLAN: MRCP and bilirubin reviewed this morning consistent with choledocholithiasis requiring ERCP gastroenterology has been consulted for ERCP. General surgery has been consulted for leprose, cholecystectomy, the patient becomes febrile. She will need gram-negative and anaerobic coverage with Zosyn. Her Cipro and Flagyl. No fever or chills overnight. Nothing by mouth status, IV fluids, hypoglycemic protocol, antiemetics and pain control as needed. DVT prophylaxis with compression stockings due to planned ERCP and possible laparoscopic cholecystectomy during this admission. Patient has 2 weeks off before the holidays and would prefer to have her laparoscopic cholecystectomy done within that period, so she will not have to take time off from work. We'll defer to cessation to the patient and the patient's surgeon VS, I&O, 24H, Fishbone Vital Signs/I&O Vital Signs Date Time Temp Pulse Resp B/P (MAP) Pulse Ox O2 Delivery O2 Flow Rate FiO2 06/05/20 09:04 16 06/05/20 06:00 97.8 69 117/79 (92) 100 Room Air I&O- Last 24 Hours up to 6 AM 06/05/20 06:00 Intake Total 1300 ml Balance 1300 ml Laboratory Data 24H LABS Laboratory Tests 2 06/04/20 10:25: Immature Granulocyte % (Auto) 1.2, Neutrophils (%) (Auto) 67.4H, Lymphocytes (%) (Auto) 24.4, Monocytes (%) (Auto) 5.6H, Eosinophils (%) (Auto) 0.5, Basophils (%) (Auto) 0.9, Neutrophils # (Auto) 6.5, Lymphocytes # (Auto) 2.4, Monocytes # (Auto) 0.5, Eosinophils # (Auto) 0.1, Basophils # (Auto) 0.1, Nucleated Red Blood Cells % (auto) 0.0, Urine Color YELLOW, Urine Appearance CLOUDYH, Urine pH 5.0, Urine Specific [place] 1.030, Urine Protein 1+H, Urine Glucose (UA) NEGATIVE, Urine Ketones NEGATIVE, Urine Blood NEGATIVE, Urine Nitrite NEGATIVE, Urine Bilirubin NEGATIVE, Urine Urobilinogen 2.0H, Urine Leukocyte Esterase NE GATIVE, Urine WBC (Auto) 3, Urine RBC (Auto) 1, Urine Hyaline Casts (Auto) 0, Urine Bacteria (Auto) 1+H, Urine Squamous Epithelial Cells 28, Urine Mucus (Auto) SMALL, Urine Sperm (Auto) , Anion Gap 4L, Glomerular Filtration Rate > 60.0, Calcium Level 9.1, Total Bilirubin 0.4, Direct Bilirubin 0.2, Aspartate Amino Transf (AST/SGOT) 44H, Alanine Aminotransferase (ALT/SGPT) 37, Alkaline Phosphatase 110, Total Protein 7.2, Albumin 3.9, Albumin/Globulin Ratio 1.2, Lipase 111, Human Chorionic Gonadotropin, Qual NEGATIVE 06/04/20 14:15: Coronavirus (COVID-19)(PCR) NEGATIVE, Influenza Type A (RT-PCR) NEGATIVE, Influenza Type B (RT-PCR) NEGATIVE, Respiratory Syncytial Virus (PCR) NEGATIVE 06/04/20 17:24: Methicillin-Resist S.aureus DNA PCR NOT DETECTED 06/04/20 18:19: Total Bilirubin 1.2#H, Direct Bilirubin 0.8H, Aspartate Amino Transf (AST/SGOT) 533H, Alanine Aminotransferase (ALT/SGPT) 331H, Alkaline Phosphatase 120H, Total Protein 6.2L, Albumin 3.3, Albumin/Globulin Ratio 1.1L 12/11/20 06:35: Immature Granulocyte % (Auto) 1.5, Neutrophils (%) (Auto) 57.0, Lymphocytes (%) (Auto) 29.2, Monocytes (%) (Auto) 9.2H, Eosinophils (%) (Auto) 2.0, Basophils (%) (Auto) 1.1H, Neutrophils # (Auto) 2.6, Lymphocytes # (Auto) 1.3L, Monocytes # (Auto) 0.4, Eosinophils # (Auto) 0.1, Basophils # (Auto) 0.1, Nucleated Red Blood Cells % (auto) 0.0, Anion Gap 5L, Glomerular Filtration Rate > 60.0, Estimated Mean Plasma Glucose 108, Hemoglobin A1c 5.4, Calcium Level 8.2L, Total Bilirubin 2.1#H, Aspartate Amino Transf (AST/SGOT) 387H, Alanine Aminotransferase (ALT/SGPT) 432H, Alkaline Phosphatase 139H, Total Protein 6.2L, Albumin 2.9L, Albumin/Globulin Ratio 0.9L, Triglycerides Level 69, Total Cholesterol 108, LDL Cholesterol 39, Non-HDL Cholesterol (LDL + VLDL) 53, Total HDL Cholesterol 55, Cholesterol/HDL Ratio 1.963, Thyroid Stimulating Hormone (TSH) 2.450 CBC/BMP Laboratory Tests 06/04/20 10:25 06/05/20 06:35 JEROD RODARTE MD Jun 05, 2020 09:24
[2020-06-05] MEDS ORDERED: PROHANCE 279.3MG/ML 5ML VIAL As Ordered ONE (09:48)
[2020-06-05] MEDS ORDERED: PROHANCE 279.3MG/ML 15ML VIAL As Ordered ONE (09:48)
--- NOTE | 2020-06-05 11:12 | REP ---
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 T2 hyperintense lesion noted incidentally in the midthoracic spine on yesterday's MR CP exam of the abdomen. COMPARISON: No comparison T-spine imaging. MRCP imaging June 04, 2020 findings well known to me.. TECHNIQUE: Sagittal and axial T1 and T2-weighted scans are acquired in the usual fashion with and without fat saturation. Sequences include spin echo, turbo spin-echo, and STIR imaging sequences. Pre and postcontrast imaging are included. The gadolinium enhancement dose is 20 mL of intravenous ProHance. FINDINGS: Cortical and medullary bone signal intensity are normal in the thoracic vertebral bodies. Alignment is normal. There is minimal degenerative disc change at T10-11. Disc spaces are maintained. No thoracic disc herniation is appreciated. Incidental note is made of cholelithiasis. No cord compressive lesion is seen. The T2 hyperintense perispinal lesion observed on yesterday's MRCP study is seen adjacent to the T5 vertebral body along its right anterolateral margin. This is located in the subpleural paravertebral soft tissues just posterior to the azygos vein. It shows homogeneously high T2 and low T1 signal intensity. It has a well-defined low T1 low T2 signal intensity margin or capsule. Its dimensions are 9 by 18 by 12 mm. There is no scalloping of the adjacent cortex. Postcontrast images show no significant contrast enhancement. These characteristics are felt to be most compatible with a simple cystic lesion. A neurogenic neoplasm would be expected to show bright contrast enhancement. No other paravertebral lesion is seen. IMPRESSION: The 18 mm T2 hyperintense lesion seen on yesterday's MRCP has characteristics most compatible with a benign simple cyst in the paravertebral soft tissues at the T5 vertebral body level. Consider interval follow-up MRI study in 6-9 months. <Electronically signed by David Khalil > 06/05/20 [id number]
[2020-06-05 14:00] VITALS: BP 114/76
[2020-06-05] MEDS: MORPHINE 30 MG TAB **MSIR PO PRN (14:20)
--- NOTE | 2020-06-05 16:46 | CR.PDOC ---
General Date of Consultation: Jun 05, 2020 Referring Provider: JEROD CLARKE MD Attending Physician: GERARDO BARBOUR MD Consultation Referring physician / PCP : Dr. Clarke Reason for consult: CHoledocholithiasis HPI: 30-year-old female patient with obesity ( BMI 41.5), presented to ER for severe epigastric and right upper quadrant abdominal pain. GI was consulted for Choledocholithiasis. Patient was in her usual state of health until about 2 weeks ago when she felt a lot of indigestion and epigastric and right upper quadrant discomfort which abated without any intervention. Today patient had another acute onset episode of epigastric right upper quadrant abdominal pain described as sharp, radiating across the abdomen into the back, accompanied with 8 episodes of emesis., severe intensity and did not improve until she came to ER and got some medication. Pertinent negative GI symptoms: Patient denies fever, chills, diarrhea, loss of appetite, early satiety or unintentional weight loss, hematemesis, melena or hematochezia. Patient reports regular bowel movements. 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 : No blood in urine, No burning sensation of the urine ENT: No ear discharge/ pain, No dysphagia. Eyes: No photophobia. Skin: No rash Home medications: reviewed. No Plavix and No anticoagulants Medical h/o: As above. Surgical h/o: None on abdomen. 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 Social Alcohol, smoking, IVDA/ drugs. Family h/o of GI cancers - None Prior Endoscopies: None in [facility]. Prior GI evaluation: None in [facility] Exam: Vitals: reviewed General: Alert and oriented x 3, not in acute distress HEENT: No pallor, no icterus. Normal oropharynx, NO cervical lymphadenopathy. Chest: symmetric with bilateral air entry, CVS: S1, S2 heard, Abdomen: non-distended, soft, mild tenderness in the right upper quadrant, no rigidity or guarding, no palpable masses, normal bowel sounds heard. Rectal exam: Patient refused / Deferred at this time. 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 Moves all extremities Skin: no rash. Labs: reviewed. Imaging: none / reviewed. Impression: -- Acute onset right upper quadrant abdominal pain, epigastric pain with nausea and vomiting, with labs showing cholestasis and MRCP showing CBD stone and gallstones. DDxCholedocholithiasis. Recommendations: -- Patient educated about the prior test results and all questions answered. -- NPO for procedure. -- Pain management as per primary team -- Obtain interval liver enzymes. -- Will schedule for ERCP based on clinical course. -- Patient educated about the procedure(, indications, risks (including but not limited to acute pancreatitis and its complications, bleeding, infection, perforation, anesthesia risks, including ), benefits and all alternatives including conservative measures without intervention. Patient verbalized understanding and consented for the procedure. -- Follow operative note for post procedure recommendations. -- Surgery evaluation for cholecystectomy. -- Plan of care educated to patient and patient verbalized understanding and agreed. All questions answered. -- Recommendations communicated to primary team. Patient to follow with PCP upon discharge for routine medical care. Vital Signs/I&O Vital Signs Date Time Temp Pulse Resp B/P (MAP) Pulse Ox O2 Delivery O2 Flow Rate FiO2 06/05/20 15:21 16 Room Air 06/05/20 14:00 98.3 65 114/76 (89) 99 I&O- Last 24 Hours up to 6 AM 06/05/20 06:00 Intake Total 1300 ml Balance 1300 ml Laboratory Data Labs 24H Laboratory Tests 2 06/04/20 17:24: Methicillin-Resist S.aureus DNA PCR NOT DETECTED 06/04/20 18:19: Total Bilirubin 1.2#H, Direct Bilirubin 0.8H, Aspartate Amino Transf (AST/SGOT) 533H, Alanine Aminotransferase (ALT/SGPT) 331H, Alkaline Phosphatase 120H, Total Protein 6.2L, Albumin 3.3, Albumin/Globulin Ratio 1.1L 06/05/20 06:35: Total Bilirubin 2.1#H, Aspartate Amino Transf (AST/SGOT) 387H, Alanine Aminotransferase (ALT/SGPT) 432H, Alkaline Phosphatase 139H, Total Protein 6.2L, Albumin 2.9L, Albumin/Globulin Ratio 0.9L, Immature Granulocyte % (Auto) 1.5, Neutrophils (%) (Auto) 57.0, Lymphocytes (%) (Auto) 29.2, Monocytes (%) (Auto) 9.2H, Eosinophils (%) (Auto) 2.0, Basophils (%) (Auto) 1.1H, Neutrophils # (Auto) 2.6, Lymphocytes # (Auto) 1.3L, Monocytes # (Auto) 0.4, Eosinophils # (Auto) 0.1, Basophils # (Auto) 0.1, Nucleated Red Blood Cells % (auto) 0.0, Anion Gap 5L, Glomerular Filtration Rate > 60.0, Estimated Mean Plasma Glucose 108, Hemoglobin A1c 5.4, Calcium Level 8.2L, Triglycerides Level 69, Total Cholesterol 108, LDL Cholesterol 39, Non-HDL Cholesterol (LDL + VLDL) 53, Total HDL Cholesterol 55, Cholesterol/HDL Ratio 1.963, Thyroid Stimulating Hormone ( TSH) 2.450 CBC/BMP Laboratory Tests 06/05/20 06:35 Allergies Coded Allergies: Sulfa (Sulfonamide Antibiotics) (Verified Allergy, Mild, rash and itching, 01/14/19) Home Medications Scheduled Buspirone HCl (Buspirone HCl) 7.5 Mg Tablet, 7.5 MG PO BID, (Reported) Erythromycin Base in Ethanol (Erythromycin 2% Gel) 30 Gm Gel..gram., 1 APLCT TOP DAILY, (Reported) APPLY TO FACE Scheduled PRN Lorazepam (Lorazepam) 2 Mg Tablet, 1 MG PO QID PRN for ANXIETY, (Reported) GERARDO BARBOUR MD Jun 05, 2020 16:46
[2020-06-05] MEDS ORDERED: MIDAZOLAM INJ 2MG/2ML VIAL (J2250 PER 1MG) As Ordered ONE (17:19)
[2020-06-05] MEDS ORDERED: PHENYLephrine HCL 500 MCG/5 ML (100MCG/ML) SYRINGE (J2370) As Ordered ONE (17:19)
[2020-06-05] MEDS ORDERED: ROCURONIUM BROMIDE 50 MG/5 ML VIAL As Ordered ONE (17:19)
[2020-06-05] MEDS ORDERED: LIDOCAINE 2% 100MG/5ML SDV (FOR ANES.) As Ordered ONE (17:19)
[2020-06-05] MEDS ORDERED: propofoL 200 MG/20 ML VIAL As Ordered ONE (17:19)
[2020-06-05] MEDS ORDERED: dexameTHASONE 4 MG/ML 1ML VIAL (J1100 PER 1MG) As Ordered ONE (17:19)
[2020-06-05] MEDS ORDERED: ONDANSETRON 4MG/2ML VIAL As Ordered ONE ×2 (17:19→18:55)
[2020-06-05] MEDS ORDERED: fentaNYL 100 MCG/2 ML INJECTION (J3010) As Ordered ONE ×3 (17:19→18:55)
[2020-06-05] MEDS ORDERED: SUGAMMADEX SODIUM 500 MG/5 ML VIAL (BRIDION) As Ordered ONE (17:24)
[2020-06-05] MEDS ORDERED: ISOVUE-300 61% 50ML VIAL As Ordered ONE (17:26)
[2020-06-05] MEDS ORDERED: GLUCAGON INJ 1MG VIAL As Ordered ONE (17:39)
--- NOTE | 2020-06-05 18:56 | REP ---
INDICATION: CHOLEDOCHOLITHIASIS. COMPARISON: MRI 06/04/2020. TECHNIQUE: Multiple C-arm images are performed of the upper abdomen during ERCP. FINDINGS: The common bile duct is catheterized. Contrast is injected. A stent is placed in the distal common bile duct. IMPRESSION: 1 minutes 43 seconds fluoroscopy time is utilized. <Electronically signed by Bobby Jarvis > 06/05/20 [id number]
--- NOTE | 2020-06-05 18:56 | ROOR ---
Patient Name: Toña Leon Procedure Date: 06/05/2020 4:28 PM Date of : 1990 Age: 30 Room: Main OR Gender: Female Note Status: Finalized Procedure: ERCP Indications: Bile duct stone(s), Elevated liver enzymes Providers: Bin Pelletier MD Referring MD: Yolanda Clarke MD Requesting Provider: Medicines: Monitored Anesthesia Care Complications: No immediate complications. Procedure: Pre-Anesthesia Assessment: - Prior to the procedure, a History and Physical was performed, and patient medications and allergies were reviewed. The patient is competent. The risks and benefits of the procedure and the sedation options and risks were discussed with the patient. All questions were answered and informed consent was obtained. Patient identification and proposed procedure were verified by the physician, the nurse and the anesthesiologist in the procedure room. Mental Status Examination: alert and oriented. Airway Examination: normal oropharyngeal airway and neck mobility. Respiratory Examination: clear to auscultation. CV Examination: normal. Prophylactic Antibiotics: The patient does not require prophylactic antibiotics. Prior Anticoagulants: The patient has taken no previous anticoagulant or antiplatelet agents. ASA Grade Assessment: II - A patient with mild systemic disease. After reviewing the risks and benefits, the patient was deemed in satisfactory condition to undergo the procedure. The anesthesia plan was to use monitored anesthesia care (MAC). Immediately prior to administration of medications, the patient was re-assessed for adequacy to receive sedatives. The heart rate, respiratory rate, oxygen saturations, blood pressure, adequacy of pulmonary ventilation, and response to care were monitored throughout the procedure. The physical status of the patient was re-assessed after the procedure. The Duodenoscope was introduced through the mouth, and advanced to the duodenum and used to inject contrast into the bile duct. The ERCP was accomplished without difficulty. The patient tolerated the procedure well. Findings: The lab coordinator film was normal. The esophagus was successfully intubated under direct vision without detailed examination of the pharynx, larynx, and associated structures, and upper GI tract. The upper GI tract was grossly normal. The major papilla was bulging. The major papilla was flat. A short 0.021 inch Jagwire was passed into the biliary tree. The short-nosed traction sphincterotome was passed over the guidewire and the bile duct was then deeply cannulated. Contrast was injected. I personally interpreted the bile duct images. Ductal flow of contrast was adequate. Image quality was adequate. Contrast extended to the entire biliary tree. The main bile duct was moderately dilated and diffusely dilated, with a stone causing an obstruction. The largest diameter was 10 mm. A 5 mm biliary sphincterotomy was made with a monofilament traction (standard) sphincterotome using ERBE electrocautery. The sphincterotomy oozed blood. The biliary tree was swept with a 10 mm balloon starting at the bifurcation. Stones were large and did not come out with balloon sweep. One 10 Fr by 7 cm biliary stent with a single external flap and a single internal flap was placed into the common bile duct. Bile and sludge flowed through the stent. The stent was in good position. Impression: - The major papilla appeared to be bulging. - The major papilla appeared to be flat. - The entire main bile duct was moderately dilated, with a stone causing an obstruction. - A biliary sphincterotomy was performed. - The biliary tree was swept. - One biliary stent was placed into the common bile duct. Recommendation: - Patient has a contact number available for emergencies. The signs and symptoms of potential delayed complications were discussed with the patient. Return to normal activities tomorrow. Written discharge instructions were provided to the patient. - The patient will be observed post-procedure, until all discharge criteria are met. - Return patient to hospital [facility] for ongoing care. - Avoid aspirin and nonsteroidal anti-inflammatory medicines. - NPO for 1 day, then advance as tolerated to clear liquid diet. - Continue present medications. - Surgical consultation for consideration of cholecystectomy at the next available appointment. - Repeat ERCP in 3 months to remove stent. - Return to GI clinic in [facility] (address [address], [address], [place], [facility] [place]) in 4 -- 6 weeks. Please call GI clinic @ [phone] for apppointment date and time. - Return to primary care physician. Procedure Code(s): --- Professional --- 38870, Endoscopic retrograde cholangiopancreatography (ERCP); with placement of endoscopic stent into biliary or pancreatic duct, including pre- and post-dilation and guide wire passage, when performed, including sphincterotomy, when performed, each stent [id number], 26, Endoscopic catheterization of the biliary ductal system, radiological supervision and interpretation Diagnosis Code(s): --- Professional --- K80.51, Calculus of bile duct without cholangitis or cholecystitis with obstruction R74.8, Abnormal levels of other serum enzymes K83.8, Other specified diseases of biliary tract CPT copyright 2019 [employer]. All rights reserved. The codes documented in this report are preliminary and upon sleeping car conductor review may be revised to meet current compliance requirements. Bin Pelletier MD Bin Pelletier MD 06/05/2020 6:56:14 PM Electronically signed by Bin Pelletier MD Number of Addenda: 0 Note Initiated On: 06/05/2020 4:28 PM Estimated Blood Loss: Estimated blood loss was minimal.
[2020-06-05] MEDS ORDERED: LR 1,000 ML IV ONE (19:00)
[2020-06-05] MEDS ORDERED: METOCLOPRAMIDE INJ 10MG/2ML VIAL (J2765 PER 1) As Ordered ONE (19:12)
[2020-06-05] MEDS ORDERED: oxyCODONE 5MG TAB PO PRN (19:15)
[2020-06-05] MEDS ORDERED: LR 1,000 ML IV SCH (19:15)
[2020-06-05] MEDS ORDERED: ONDANSETRON 4MG/2ML VIAL IV PRN (19:15)
[2020-06-05] MEDS ORDERED: fentaNYL 100 MCG/2 ML INJECTION (J3010) IV PRN (19:15)
[2020-06-05] MEDS ORDERED: METOCLOPRAMIDE INJ 10MG/2ML VIAL (J2765 PER 1) IV PRN (19:30)
[2020-06-05 20:20] VITALS: BP 124/78
[2020-06-05] MEDS: LR 1,000 ML IV SCH (20:26)
[2020-06-05 20:50] VITALS: BP 124/78
[2020-06-05 21:50] VITALS: BP 116/77
[2020-06-05 22:50] VITALS: BP 128/77
[2020-06-06] MEDS: LR 1,000 ML IV SCH (00:12)
[2020-06-06 02:00] VITALS: BP 128/54
[2020-06-06 06:00] VITALS: BP 126/76
[2020-06-06 06:51] LABS: BASO % 0.3 % (0.0-1.0); EOS % 0.3 % (0.0-3.0); HEMATOCRIT 36.6 % (36.0-47.0); HEMOGLOBIN 11.3 g/dl (12.0-15.5); LYMPH # 1.6 10^3/uL (1.5-5.0); LYMPH % 19.9 % (24.0-44.0); MEAN CORPUSCULAR HEMOGLOBIN 27.8 pg (27.0-33.0); MEAN CORPUSCULAR HGB CONC 30.9 g/dl (32.0-36.5); MEAN CORPUSCULAR VOLUME 90.1 fl (80.0-96.0); MONO # 0.5 10^3/uL (0.0-0.8); MONO % 5.7 % (0.0-5.0); NEUTROPHILS # 5.8 10^3/uL (1.5-8.5); NEUTROPHILS % 72.7 % (36.0-66.0); PLATELET COUNT, AUTOMATED 181 10^3/uL (150-450); RED BLOOD COUNT 4.06 10^6/uL (4.00-5.40); WHITE BLOOD COUNT 7.9 10^3/uL (4.0-10.0)
[2020-06-06 07:20] LABS: ALBUMIN 3.2 GM/DL (3.2-5.2); ALT/SGPT 322 U/L (12-78); BILIRUBIN,TOTAL 0.6 MG/DL (0.2-1.0); BLOOD UREA NITROGEN 6 MG/DL (7-18); CALCIUM LEVEL 8.9 MG/DL (8.5-10.1); CARBON DIOXIDE LEVEL 29 MEQ/L (21-32); CHLORIDE LEVEL 108 MEQ/L (98-107); GLOMERULAR FILTRATION RATE > 60.0 (>60); GLUCOSE, FASTING 78 MG/DL (70-100); SODIUM LEVEL 140 MEQ/L (136-145); TOTAL PROTEIN 6.3 GM/DL (6.4-8.2)
[2020-06-06] MEDS ORDERED: TRAM50TA2 PO (07:46)
[2020-06-06] MEDS: busPIRone 5 MG TAB PO SCH (08:53)
[2020-06-06] MEDS: ERYTHROMYCIN 2 % GEL 30GM TOP SCH (08:54)
--- NOTE | 2020-06-06 10:22 | DS.PDOC ---
Discharge Summary General Date of Admission Jun 04, 2020 at 13:25 Date of Discharge 06/06/20 Discharge Summary DISCHARGE DIAGNOSES: Choledocholithiasis without cholecystitis or cholangitis s/p ERCP 06/05/20 with sphincterotomy and stent placement. incidental finding: benign simple cyst in the paravertebral soft tissues at the T5 Morbid obesity, BMI 41 Anxiety History of MRSA infection DISCHARGE MEDICATIONS: SEE BELOW DISCHARGE INSTRUCTIONS: PCP to order 6-9 month FU MRI thoracic spine to f/u incidental benign cyst. PATIENT REFUSED LAPAROSCOPIC CHOLECYSTECTOMY 06/12/20-DR DE LA TORRE MADE AWARE. PT TO CALL GENERAL SURGERY ON MONDAY POST-ERCP /GI INSTRUCTIONS PER DR. BARBOUR LOW FAT LOW CHOLESTEROL DIET RETURN TO ER IF FEVER >100.4, N/V/INTRACTABLE ABD PAIN, OR JAUNDICE OCCUR. PCP FU 1 WK, PT REFUSED TO FU WITH GENERAL SURGERY-SHE IS TO CALL TO DISCUSS HER PARTICULAR WISHES. HOSPITAL COURSE: This 30-year-old obese female. BMI 41.0, history of MRSA in the left buttock abscess in 2014, breast reduction, right shoulder repair, wisdom teeth extraction, tonsillectomy, adenoidectomy and 2 miscarriages was in her usual state of health until about 2 weeks ago when she felt a lot of indigestion and epigastric and right upper quadrant discomfort which abated without intervention. Today blood work. Patient had epigastric right upper quadrant abdominal pain described as sharp, radiating across the abdomen into the back, accompanied with 8 episodes of emesis. Ileus while she was at work without fever or chills. Patient admits to feeling flatulence had a normal bowel movement yesterday but has noted oily stools in the past couple weeks. No medications were taken side from her usual medications including Ativan, which she took on an empty stomach and thought was the cause for her abdominal pain today. Patient presented to the emergency room for evaluation, was found to have choledocholithiasis with an 8 mm CBD. Hospitalist was asked to admit the patient for choledo cholelithiasis without acute cholecystitis or cholangitis. Patient otherwise denies any shortness of breath, chest pain, pressure, tightness, lightheadedness, dizziness. She denies any diarrhea or constipation, dysuria, urgency, frequency, weight gain, weight loss, changes in appetite, vision, hearing loss, tinnitus or ear discharge. Denies bilateral upper or lower extremity paresthesias or weakness. In the emergency room, patient had no white count or fever. No antibiotics were given. She had some relief with IV morphine, Toradol. Patient had an MRCP showing choledocholithiais with increasing pain and bilirubin, underwent ERCP with sweeping, sphinterotomy, and biliary stent placement on 06/05/20, kept npo for one day after the ERCP, and tolerated liquid diet advanced to low fat. Patient refused laparoscopic cholecystetomy scheduled o, and Dr. De La Torre was informed. Pt will call the general surgeon's office on Monday to clarify her reasons for not undergoing surgery. She has been advised that she may develop recurrent biliary colic and possible cholecystitis. MRCP also showed a thoracid lesion evaluated with MRI thoracic spine with finding of benign cyst, but "6-9 month interval fu recommended," and to be done by her primary care physician. Physical exam: VITAL SIGNS: See below GENERAL APPEARANCE: Cooperative No distress. Awake, alert, oriented 3., Conversant No conversational dyspnea. No icterus or jaundice HEENT: Extra muscles are intact., Moist mucous membranes. Neck supple, full range of motion. No cervical lymphadenopathy or thyromegaly. No JVD . CARDIOVASCULAR: S1, S2, sinus rhythm, no murmurs, rubs or gallops LUNGS: Clear to auscultation. Wheezing, rales or rhonchi ABDOMEN: Soft, nontende no distention, rebound, guarding. Positive bowel sounds EXTREMITIES: No cyanosis, clubbing or pitting edema LABORATORY DATA: See below. IMAGIN06/04/20 GALLBLADDER ULTRASOUND Real-time sonographic evaluation of right upper quadrant performed. FINDINGS: There are multiple innumerable small gallstones in the gallbladder.. The common bile duct is slightly prominent in diameter 8 mm. No intrahepatic biliary dilatation is seen. The liver demonstrates homogeneous echotexture with no gross mass. The pancreas is not visualized due to overlying bowel gas. The right kidney demonstrates no hydronephrosis, with a normal size of 10.3 cm in length. No free fluid is seen. IMPRESSION: Multiple gallstones in the gallbladder. No gallbladder wall thickening. No pericholecystic fluid. Slight dilatation of the common bile duct at 8 mm. MICROBIOLOGY: Please see below. PROCEDURES PERFORMED DURING STAY: Patient Name: Toña Carolyn Procedure Date: 06/05/2020 4:28 PM Date of : 1990 Age: 30 Room: Main OR Gender: Female Note Status: Finalized Procedure: ERCP Indications: Bile duct stone(s), Elevated liver enzymes Providers: Bin Barbour MD Referring MD: Jerod Rodarte MD Requesting Provider: Medicines: Monitored Anesthesia Care Complications: No immediate complications. Procedure: Pre-Anesthesia Assessment: - Prior to the procedure, a History and Physical was performed, and patient medications and allergies were reviewed. The patient is competent. The risks and benefits of the procedure and the sedation options and risks were discussed with the patient. All questions were answered and informed consent was obtained. Patient identification and proposed procedure were verified by the physician, the nurse and the anesthesiologist in the procedure room. Mental Status Examination: alert and oriented. Airway Examination: normal oropharyngeal airway and neck mobility. Respiratory Examination: clear to auscultation. CV Examination: normal. Prophylactic Antibiotics: The patient does not require prophylactic antibiotics. Prior Anticoagulants: The patient has taken no previous anticoagulant or antiplatelet agents. ASA Grade Assessment: II - A patient with mild systemic disease. After reviewing the risks and benefits, the patient was deemed in satisfactory condition to undergo the procedure. The anesthesia plan was to use monitored anesthesia care (MAC). Immediately prior to administration of medications, the patient was re-assessed for adequacy to receive sedatives. The heart rate, respiratory rate, oxygen saturations, blood pressure, adequacy of pulmonary ventilation, and response to care were monitored throughout the procedure. The physical status of the patient was re-assessed after the procedure. The Duodenoscope was introduced through the mouth, and advanced to the duodenum and used to inject contrast into the bile duct. The ERCP was accomplished without difficulty. The patient tolerated the procedure well. Findings: The packaging inspector film was normal. The esophagus was successfully intubated under direct vision without detailed examination of the pharynx, larynx, and associated structures, and upper GI tract. The upper GI tract was grossly normal. The major papilla was bulging. The major papilla was flat. A short 0.021 inch Jagwire was passed into the biliary tree. The short-nosed traction sphincterotome was passed over the guidewire and the bile duct was then deeply cannulated. Contrast was injected. I personally interpreted the bile duct images. Ductal flow of contrast was adequate. Image quality was adequate. Contrast extended to the entire biliary tree. The main bile duct was moderately dilated and diffusely dilated, with a stone causing an obstruction. The largest diameter was 10 mm. A 5 mm biliary sphincterotomy was made with a monofilament traction (standard) sphincterotome using ERBE electrocautery. The sphincterotomy oozed blood. The biliary tree was swept with a 10 mm balloon starting at the bifurcation. Stones were large and did not come out with balloon sweep. One 10 Fr by 7 cm biliary stent with a single external flap and a single internal flap was placed into the common bile duct. Bile and sludge flowed through the stent. The stent was in good position. Impression: - The major papilla appeared to be bulging. - The major papilla appeared to be flat. - The entire main bile duct was moderately dilated, with a stone causing an obstruction. - A biliary sphincterotomy was performed. - The biliary tree was swept. - One biliary stent was placed into the common bile duct. Recommendation: - Patient has a contact number available for emergencies. The signs and symptoms of potential delayed complications were discussed with the patient. Return to normal activities tomorrow. Written discharge instructions were provided to the patient. - The patient will be observed post-procedure, until all discharge criteria are met. - Return patient to [facility] for ongoing care. - Avoid aspirin and nonsteroidal anti-inflammatory medicines. - NPO for 1 day, then advance as tolerated to clear liquid diet. - Continue present medications. - Surgical consultation for consideration of cholecystectomy at the next available appointment. - Repeat ERCP in 3 months to remove stent. - Return to GI clinic in [facility] (address [address], [address], [place], [facility]) in 4 -- 6 weeks. Please call GI clinic @ [phone] for apppointment date and time. - Return to primary care physician. Procedure Code(s): --- Professional --- 85800, Endoscopic retrograde cholangiopancreatography (ERCP); with placement of endoscopic stent into biliary or pancreatic duct, including pre- and post-dilation and guide wire passage, when performed, including sphincterotomy, when performed, each stent [id number], 26, Endoscopic catheterization of the biliary ductal system, radiological supervision and interpretation Diagnosis Code(s): --- Professional --- K80.51, Calculus of bile duct without cholangitis or cholecystitis with obstruction R74.8, Abnormal levels of other serum enzymes K83.8, Other specified diseases of biliary tract CPT copyright 2019 [employer]. All rights reserved. The codes documented in this report are preliminary and upon paper production engineer review may be revised to meet current compliance requirements. Bin Barbour MD TIME SPENT ON DISCHARGE: 30 minutes. Vital Signs/I&Os Vital Signs Date Time Temp Pulse Resp B/P (MAP) Pulse Ox O2 Delivery O2 Flow Rate FiO2 06/06/20 06:00 99.2 90 16 126/76 (93) 98 Room Air 06/05/20 19:55 2 I&O- Last 24 Hours up to 6 AM 06/06/20 06:00 Intake Total 5400 ml Output Total 0 ml Balance 5400 ml Laboratory Data Labs 24H Laboratory Tests 2 06/06/20 06:25: Immature Granulocyte % (Auto) 1.1, Neutrophils (%) (Auto) 72.7H, Lymphocytes (%) (Auto) 19.9L, Monocytes (%) (Auto) 5.7H, Eosinophils (%) (Auto) 0.3, Basophils (%) (Auto) 0.3, Neutrophils # (Auto) 5.8, Lymphocytes # (Auto) 1.6, Monocytes # (Auto) 0.5, Eosinophils # (Auto) 0.0, Basophils # (Auto) 0.0, Nucleated Red Blood Cells % (auto) 0.0, Anion Gap 3L, Glomerular Filtration Rate > 60.0, Calcium Level 8.9, Total Bilirubin 0.6#, Aspartate Amino Transf (AST/SGOT) 134H, Alanine Aminotransferase (ALT/SGPT) 322H, Alkaline Phosphatase 148H, Total Protein 6.3L, Albumin 3.2, Albumin/Globulin Ratio 1.0L CBC/BMP Laboratory Tests 06/06/20 06:25 Discharge Medications Scheduled Buspirone HCl (Buspirone HCl) 7.5 Mg Tablet, 7.5 MG PO BID, (Reported) Erythromycin Base in Ethanol (Erythromycin 2% Gel) 30 Gm Gel..gram., 1 APLCT TOP DAILY, (Reported) APPLY TO FACE Scheduled PRN Lorazepam (Lorazepam) 2 Mg Tablet, 1 MG PO QID PRN for ANXIETY, (Reported) Tramadol HCl (Tramadol HCl) 50 Mg Tablet, 50 MG PO Q6HP PRN for pain Allergies Coded Allergies: Sulfa (Sulfonamide Antibiotics) (Verified Allergy, Mild, rash and itching, 01/14/19) JEROD RODARTE MD Jun 06, 2020 10:10
== END 2020-06-06 15:15 | disposition home or self-care (01) ==
LOC: M ED 09:48 → M ED INP 13:25 → ENRESERV 13:48 → M MS5PR 16:25
PROVIDERS: ADMIT General Practice; ATTEND General Practice
PROC: 0FC98ZZ Extirpation of Matter from Common Bile Duct, Via Natural or Artificial Opening Endoscopic (ICD-10-PCS; 2020-06-05)
PROC: 0F798DZ Dilation of Common Bile Duct with Intraluminal Device, Via Natural or Artificial Opening Endoscopic (ICD-10-PCS; principal; 2020-06-05 15:30)
DX: K80.51 Calculus of bile duct without cholangitis or cholecystitis with obstruction (principal); G95.9 Disease of spinal cord, unspecified; E66.01 Morbid (severe) obesity due to excess calories; Z68.41 Body mass index [BMI] 40.0-44.9, adult; F41.9 Anxiety disorder, unspecified; Z53.29 Procedure and treatment not carried out because of patient's decision for other reasons; Z79.899 Other long term (current) drug therapy; Z88.2 Allergy status to sulfonamides

== ENCOUNTER → 2020-06-08 | Outpatient (CLI) | payer OTHER ==
[~2020-06-08] MED LIST: BUSP1TAB PO; ERYT2GEL TOP; LORA2TAB14 PO; TRAM50TA2 PO
== END ==
LOC: M LABSMTC 13:20
PROVIDERS: ATTEND Anesthesiology
DX: Z01.812 Encounter for preprocedural laboratory examination (principal); Z20.828 Contact with and (suspected) exposure to other viral communicable diseases

== ENCOUNTER → 2020-06-09 | Outpatient (CLI) | payer OTHER ==
--- NOTE | 2020-06-09 10:58 | REP ---
INDICATION: K59.00, CONSTIPATION. COMPARISON: Lumbar spine performed 09/08/2009. TECHNIQUE: There are four views 1 upright and 3 supine views of the abdomen and pelvis. FINDINGS: The bowel gas pattern is normal. There is a moderate volume of fecal residue throughout the colon. There is no colonic distention. No small bowel distention. There is a biliary stent in the abdominal right upper quadrant, not present previously. There are no calcifications. The skeletal structures and soft tissues otherwise are unremarkable. IMPRESSION: Normal bowel gas pattern. Biliary stent in the abdominal right upper quadrant. <Electronically signed by Bobby Berger > 06/09/20 1055
== END ==
LOC: M CLY 10:10
PROVIDERS: ATTEND Physician Assistant
DX: K59.00 Constipation, unspecified (principal); Z96.89 Presence of other specified functional implants

== ENCOUNTER 2020-06-11 13:54 | Day surgery (SDC) | payer OTHER ==
[~2020-06-11] VITALS: Ht 175.3 cm; Wt 111.8 kg
[~2020-06-11 13:54] MED LIST changes: +UNASYN 3 GM VIAL IV ONE
[2020-06-11] MEDS ORDERED: LR 1,000 ML IV ONE (15:00)
[2020-06-11] MEDS ORDERED: MIDAZOLAM INJ 2MG/2ML VIAL (J2250 PER 1MG) As Ordered ONE (15:41)
[2020-06-11] MEDS ORDERED: ROCURONIUM BROMIDE 50 MG/5 ML VIAL As Ordered ONE ×2 (15:41→18:09)
[2020-06-11] MEDS ORDERED: LIDOCAINE 2% 100MG/5ML SDV (FOR ANES.) As Ordered ONE (15:41)
[2020-06-11] MEDS ORDERED: ONDANSETRON 4MG/2ML VIAL As Ordered ONE (15:41)
[2020-06-11] MEDS ORDERED: fentaNYL 100 MCG/2 ML INJECTION (J3010) As Ordered ONE ×5 (15:41→20:32)
[2020-06-11] MEDS ORDERED: propofoL 200 MG/20 ML VIAL As Ordered ONE (15:41)
[2020-06-11] MEDS ORDERED: dexameTHASONE 4 MG/ML 1ML VIAL (J1100 PER 1MG) As Ordered ONE (15:42)
[2020-06-11] MEDS ORDERED: LIDOCAINE 1% SDV 30ML VIAL As Ordered ONE (16:55)
[2020-06-11] MEDS ORDERED: BUPIVACAINE HCL 0.25% 30ML VIAL As Ordered ONE (16:55)
[2020-06-11] MEDS ORDERED: ACETAMINOPHEN 1000MG 100ML IV BTL (OFIRMEV) (J0131 PER 10MG) As Ordered ONE (17:31)
[2020-06-11] MEDS ORDERED: SUGAMMADEX SODIUM 500 MG/5 ML VIAL (BRIDION) As Ordered ONE (17:38)
[2020-06-11] MEDS ORDERED: KETOROLAC 60MG 2ML VIAL As Ordered ONE (17:38)
[2020-06-11] MEDS ORDERED: ESMOLOL INJ 100MG/10ML VIAL As Ordered ONE (18:56)
[2020-06-11] MEDS ORDERED: LABETALOL 100MG/20ML VIAL As Ordered ONE (19:46)
[2020-06-11] MEDS ORDERED: DESFLURANE 240 ML INHALANT As Ordered ONE (19:56)
[2020-06-11] MEDS ORDERED: METOCLOPRAMIDE INJ 10MG/2ML VIAL (J2765 PER 1) As Ordered ONE (19:57)
[2020-06-11] MEDS ORDERED: oxyCODONE 5MG TAB As Ordered ONE (20:32)
[2020-06-11] MEDS ORDERED: LR 1,000 ML IV SCH (20:45)
[2020-06-11] MEDS ORDERED: fentaNYL 100 MCG/2 ML INJECTION (J3010) IV PRN (20:45)
[2020-06-11] MEDS ORDERED: oxyCODONE 5MG TAB PO PRN (20:45)
[2020-06-11] MEDS ORDERED: ONDANSETRON 4MG/2ML VIAL IV PRN ×2 (20:45→21:15)
[2020-06-11] MEDS ORDERED: HYDROMORPHONE HCL 0.5 MG/ 0.5 ML SYRINGE (J1170 PER 1) IV PRN (20:45)
[2020-06-11] MEDS ORDERED: KETOROLAC 30 MG/ML 1ML VIAL IV PRN (21:15)
[2020-06-11] MEDS ORDERED: PERCOCET 5MG/325MG TAB PO PRN (21:15)
[2020-06-11 21:45] VITALS: BP 121/76
--- NOTE | 2020-07-08 02:01 | ROOPDOC ---
[facility] Report Of Operation Report of Operation DATE OF PROCEDURE: 06/11/20 PREPROCEDURE DIAGNOSES: Cholelithiasis, history of choledocholithiasis. POSTPROCEDURE DIAGNOSES: Cholelithiasis, chronic cholecystitis. PROCEDURE: Robotic-assisted laparoscopic cholecystectomy with ICG identification of the biliary tree. SURGEON: Mati De La Torre MD [employer] TECHNICIAN: ANESTHESIA: General Anesthesia. ESTIMATED BLOOD LOSS: Approximately 50 mL. COMPLICATIONS: none. REMARKS: 30 F with morbid obesity recently admitted in the hospital with colon bile duct stone and ERCP done with resolution of jaundice now presents for cholecystectomy. PROCEDURE NOTE: Enlarged liver, moderately distended mildly thickened gallbladder gallbladder is located deep underneath the liver. During gallbladder dissection there is a anterior cystic duct branch that we had some bleeding con trolled with bipolar cautery and placement of a Coalgate clip DESCRIPTION OF PROCEDURE: Robotic Assisted Lap Cholecystectomy Patient was given a dose Unasyn 3 g IV preoperatively for prophylaxis. She was given ICG 5 mg IV 30 minutes prior to the procedure. She was brought to the operating room, laid supine on the table, compression boots placed for DVT prophylaxis. General endotracheal anesthesia started. His abdomen then prepped and draped in usual sterile fashion. Surgical timeout was performed prior to starting surgery. The small incision over the left midclavicular line a Veress needle was inserted. Intra-abdominal placement confirmed with saline drop technique. CO2 insufflation and started to pressure 15 mmHg. Using the same incision an 8 mm robotic trocar was placed under direct vision of laparoscope. Insertion site was inspected for injury and none was found. She was positioned in reverse Trendelenburg slightly tilted towards the left side. She had moderate bulky omentum covering bowel. She has an enlarged liver is fatty replaced extending past the subcostal cartilage. Gallbladder initially was not visible later on found to be located deep subhepatically. After positioning the patient 3 other robotic trochars along the same line were placed one at the anterior axillary line and one at the right midclavicular line and one slightly to the left of the umbilicus. The da Ivan robot tower was then positioned in place and the trochars stalk. The instruments were then placed intra-abdominally guided by the laparoscope. I then scrubbed in to control of the robotic camera and instruments at the surgeon's console. Operative findings: As mentioned she has an enlarged liver, bulky omentum and deep subhepatically location of the gallbladder. This made exposure and dissection moderately difficult. I placed some cottonoids inside to help with retraction of the omentum. The gallbladder itself is only mildly thickened it is still moderately distended with the gallbladder senior living filled with stones. The fundus of the gallbladder was grasped and the gallbladder was elevated superiorly exposing the neck of the gallbladder. The peritoneum overlying the area was opened up and dissected free both anteriorly and posteriorly to help with retraction of the gallbladder. The hepatocystic triangle was approached and dissected using a [place] and instrument. The cystic duct was identified coming off from the neck of the gallbladder this was circumferentially dissected. The cystic artery was identified in its usual position medially behind a small hepatocystic lymph node. This was similarly circumferentially dissected off surrounding adipose tissue. We continued posterior dissection proximally at the next gallbladder until a critical view of safety was achieved whereby only the previously identified duct and artery coursing through the neck the gallbladder. The cystic artery was divided after placing 2 Hem-o-vince clips. The cystic duct was divided after placing 3 Hem-o-vince clips . The remaining attachments of the gallbladder to the liver bed was then dissected with cautery while I was dissecting posteriorly small branch of the cystic artery posteriorly was not immediately recognized and this bled. This was controlled with the bipolar cautery and also another Coalgate clip. The spilled blood was suctioned and irrigated. The gallbladder was retrieved through the anterior axillary port which had to enlarge. This was then later closed with a Qamar Cabrera device using 0 Vicryl in a mattress fashion After this the abdomen deflated. Rest of the incisions were closed with 4-0 Monocryl in subcutaneous fashion. Steri-Strips and gauze dressings in place in top of the incisions. Patient was then promptly awakened, extubated and brought to recovery room in stable condition. Patient was given a dose Unasyn 3 g IV preoperatively for prophylaxis. She was given a dose of ICG 5 mg IV with 10 mL NS flush 45 minutes prior to the procedure. She was brought to the operating room, laid supine on the table, compression boots placed for DVT prophylaxisusual sterile fashion. We paused for a surgical timeout using both pre-incision safety checklist to verify correct patient, procedure site and additional clinical information prior to beginning the procedure. Entry to the abdomen done through a small incision at the left upper quadrant area. A Veress needle is inserted on a controlled fashion. CO2 insufflation started to pressure 15 mmHg. Using the same incision a 8 mm optical trocar was then placed under direct vision of laparoscope. The insertion site was inspected for injury and none was found. An initial laparoscopic examination was noted that she has a small supraumbilical hernia with omentum stuck within it. Patient was then positioned on a reverse trendelenburg position with her right side til tawanna up to further expose the gallbladder and gallbladder fossa and retract the bowels away from the area. Under direct vision in the right upper quadrant in the right lower quadrant midclavicular port was placed. A 10 worked on reducing the omentum incarcerated in the supraumbilical hernia. This caused some bleeding from the reduced omentum and this was controlled with Bovie cautery. I then used the supraumbilical port as my last port site. Under laparoscopic guidance, the right lateral abdominal wall area at the transversus abdominis plane was infiltrated with local anesthesia. The da Ivan Xi robotic tower was then maneuvered in place, the trochars were docked onto the robotic arms, the camera and instruments placed and positioned inside the abdomen. I then and scrubbed in to control of the robotic camera and instruments at the surgeon's console I examined again the omentum and cauterized the site with bipolar cautery. Her liver smooth in contour the gallbladder is mildly distended takes very elongated course but otherwise minimally thickened abdominal wall without any evidence of acute inflammation.The fundus of the gallbladder was grasped and the gallbladder was elevated superiorly exposing the neck of the gallbladder. Gallbladder wall is mildly and chronically thickened without any sign of any acute inflammation. The peritoneum overlying the area was opened up and dissected free both anteriorly and posteriorly to help with retraction of the gallbladder. The hepatocystic triangle was approached and dissected using a forced bipolar instrument and robotic hook cautery. The neck of the gallbladder and the course of the cystic duct as well as the bile duct was adequately visualized with aid of firefly and ICG. The cystic artery was identified and during dissection there was some mild oozing behind the cystic artery so I decided to put Coalgate clips at the cystic artery early though I did not transect it at this time. The cystic duct was identified coming off from the neck gallbladder this was circumferentially dissected. We continued posterior dissection proximally at the neck of the gallbladder until a critical view of safety was achieved whereby only the previously identified duct and artery coursing through the neck the gallbladder. I switched views with firefly to determine and visualized the course of the cystic duct, likewise the common bile duct. Photodocumentation was done of the critical view of safety. The cystic artery was then divided in between the previously placed Coalgate clips. After again checking her anatomy and verifying that the previously identified cystic duct with firefly view, this was also clipped 3 times and divided (2 hemoclips downstream and one Hemoclip upstream). The rest of the gallbladder was then dissected free of the gallbladder bed using Bovie cautery. The gallbladder was detached from the liver plate intact, and placed into an Endobag. I scrubbed back in. The gallbladder was extracted from the left upper quadrant port site with blunt enlargement of the trocar site using Katja forceps. The fascial opening at the left upper quadrant was closed with Qamar- Neema device using an 0 Vicryl stitch. The abdomen was deflated all ports were removed. The umbilical fascial defect repaired with 0 Vicryl in a mattress fashion. Rest of the skin incisions closed with 4-0 Monocryl in subcuticular fashion. Dermabond was used to cover the port site incisions Patient was awakened, extubated and brought to recovery room stable. MATI DE LA TORRE MD Jul 08, 2020 02:01
== END 2020-06-11 22:07 | disposition home or self-care (01) ==
LOC: M SDC 13:54
PROVIDERS: ATTEND Surgery
DX: K80.10 Calculus of gallbladder with chronic cholecystitis without obstruction (principal); F41.9 Anxiety disorder, unspecified; K21.9 Gastro-esophageal reflux disease without esophagitis; R06.83 Snoring; Z86.14 Personal history of Methicillin resistant Staphylococcus aureus infection; Z88.2 Allergy status to sulfonamides; Z79.899 Other long term (current) drug therapy
CPT/HCPCS: 47562; 81025; 88304; J0131; J1100; J1885; J2250; J2405; J2765; J3010; S2900

== ENCOUNTER → 2020-08-07 | Outpatient (REF) | payer OTHER ==
[~2020-08-07] MED LIST changes: -UNASYN 3 GM VIAL IV ONE
== END ==
LOC: M SFHCWAGY 13:48
PROVIDERS: ATTEND Advanced Practice Midwife
DX: Z12.4 Encounter for screening for malignant neoplasm of cervix (principal)

== ENCOUNTER → 2020-09-24 | Outpatient (CLI) | payer OTHER ==
[~2020-09-24] MED LIST changes: +PAME10CA PO; +VITMTA PO
== END ==
LOC: M LABSMTC 13:35
PROVIDERS: ATTEND Anesthesiology
DX: Z01.812 Encounter for preprocedural laboratory examination (principal); Z20.822 Contact with and (suspected) exposure to COVID-19

== ENCOUNTER 2020-09-29 06:20 | Day surgery (SDC) | payer OTHER ==
[~2020-09-29] VITALS: Ht 167.6 cm; Wt 113.9 kg
[~2020-09-29 06:20] MED LIST changes: +LIDOCAINE 1% MDV 20ML VIAL SQ PRN; +LR 1,000 ML IV ONE
[2020-09-29] MEDS ORDERED: ISOVUE-300 61% 50ML VIAL As Ordered ONE (07:12)
[2020-09-29] MEDS ORDERED: METOCLOPRAMIDE INJ 10MG/2ML VIAL (J2765 PER 1) As Ordered ONE (07:14)
[2020-09-29] MEDS ORDERED: ROCURONIUM BROMIDE 50 MG/5 ML VIAL As Ordered ONE (07:14)
[2020-09-29] MEDS ORDERED: ONDANSETRON 4MG/2ML VIAL As Ordered ONE ×2 (07:14→08:33)
[2020-09-29] MEDS ORDERED: LIDOCAINE 2% 100MG/5ML SDV (FOR ANES.) As Ordered ONE (07:14)
[2020-09-29] MEDS ORDERED: propofoL 200 MG/20 ML VIAL As Ordered ONE (07:14)
[2020-09-29] MEDS ORDERED: fentaNYL 100 MCG/2 ML INJECTION (J3010) As Ordered ONE (07:16)
[2020-09-29] MEDS ORDERED: MIDAZOLAM INJ 2MG/2ML VIAL (J2250 PER 1MG) As Ordered ONE (07:16)
[2020-09-29] MEDS ORDERED: SUGAMMADEX SODIUM 500 MG/5 ML VIAL (BRIDION) As Ordered ONE (08:36)
[2020-09-29] MEDS ORDERED: LR 1,000 ML IV SCH (08:40)
[2020-09-29] MEDS ORDERED: PERCOCET 5MG/325MG TAB PO PRN (08:40)
[2020-09-29] MEDS ORDERED: METOCLOPRAMIDE INJ 10MG/2ML VIAL (J2765 PER 1) IV PRN (08:40)
[2020-09-29] MEDS ORDERED: fentaNYL 100 MCG/2 ML INJECTION (J3010) IV PRN (08:40)
[2020-09-29] MEDS ORDERED: ONDANSETRON 4MG/2ML VIAL IV PRN (08:40)
--- NOTE | 2020-09-29 08:41 | ROOR ---
Patient Name: Toña Leon Procedure Date: 09/29/2020 7:33 AM Date of : 1990 Age: 30 Room: [facility] Gender: Female Note Status: Finalized Procedure: ERCP Indications: Common bile duct stone(s), Biliary stent removal Providers: Bin Pelletier MD Referring MD: Lucie Remy NP Requesting Provider: Medicines: Monitored Anesthesia Care Complications: No immediate complications. Procedure: Pre-Anesthesia Assessment: - Prior to the procedure, a History and Physical was performed, and patient medications and allergies were reviewed. The patient is competent. The risks and benefits of the procedure and the sedation options and risks were discussed with the patient. All questions were answered and informed consent was obtained. Patient identification and proposed procedure were verified by the physician, the nurse and the anesthesiologist in the procedure room. Mental Status Examination: alert and oriented. Airway Examination: normal oropharyngeal airway and neck mobility. Respiratory Examination: clear to auscultation. CV Examination: normal. Prophylactic Antibiotics: The patient does not require prophylactic antibiotics. Prior Anticoagulants: The patient has taken no previous anticoagulant or antiplatelet agents. ASA Grade Assessment: II - A patient with mild systemic disease. After reviewing the risks and benefits, the patient was deemed in satisfactory condition to undergo the procedure. The anesthesia plan was to use monitored anesthesia care (MAC). Immediately prior to administration of medications, the patient was re-assessed for adequacy to receive sedatives. The heart rate, respiratory rate, oxygen saturations, blood pressure, adequacy of pulmonary ventilation, and response to care were monitored throughout the procedure. The physical status of the patient was re-assessed after the procedure. The Duodenoscope was introduced through the mouth, and advanced to the duodenum and used to inject contrast into the bile duct. The ERCP was accomplished without difficulty. The patient tolerated the procedure well. Findings: A biliary stent was visible on the insole and outsole preparer film. The esophagus was successfully intubated under direct vision without detailed examination of the pharynx, larynx, and associated structures, and upper GI tract. The upper GI tract was grossly normal. One plastic stent originating in the biliary tree was emerging from the major papilla. The stent was visibly patent. One stent was removed from the biliary tree using a snare. A 0.035 inch x 260 cm straight Hydra Jagwire was passed into the biliary tree. The short-nosed traction sphincterotome was passed over the guidewire and the bile duct was then deeply cannulated. Contrast was injected. I personally interpreted the bile duct images. Ductal flow of contrast was adequate. Image quality was adequate. Contrast extended to the entire biliary tree. The lower third of the main bile duct and middle third of the main bile duct contained filling defect(s) thought to be a stone. Biliary sphincterotomy was made with a monofilament traction (standard) sphincterotome using ERBE electrocautery. There was no post-sphincterotomy bleeding. The biliary tree was swept with a 10 mm balloon starting at the bifurcation. Three stones were removed. No stones remained. Occlusion cholangiogram at the end of the procedure did not show any residual filling defects. Pancreatic duct was neither cannulated nor opacified. Impression: - One visibly patent stent from the biliary tree was seen in the major papilla. - A filling defect consistent with a stone was seen on the cholangiogram. - Choledocholithiasis was found. Complete removal was accomplished by biliary sphincterotomy and balloon extraction. - One stent was removed from the biliary tree. - A biliary sphincterotomy was performed. - The biliary tree was swept. Recommendation: - The patient will be observed post-procedure, until all discharge criteria are met. - Patient has a contact number available for emergencies. The signs and symptoms of potential delayed complications were discussed with the patient. Return to normal activities tomorrow. Written discharge instructions were provided to the patient. - Avoid aspirin and nonsteroidal anti-inflammatory medicines. - Clear liquid diet today, then advance as tolerated to high fiber diet and low fat diet. - Telephone GI clinic if symptomatic. - Return to primary care physician. Procedure Code(s): --- Professional --- 54120, Endoscopic retrograde cholangiopancreatography (ERCP); with removal of foreign body(s) or stent(s) from biliary/pancreatic duct(s) 08469, Endoscopic retrograde cholangiopancreatography (ERCP); with removal of calculi/debris from biliary/pancreatic duct(s) 40592, Endoscopic retrograde cholangiopancreatography (ERCP); with sphincterotomy/papillotomy 89190, 26, Endoscopic catheterization of the biliary ductal system, radiological supervision and interpretation Diagnosis Code(s): --- Professional --- Z96.89, Presence of other specified functional implants K80.50, Calculus of bile duct without cholangitis or cholecystitis without obstruction Z46.59, Encounter for fitting and adjustment of other gastrointestinal appliance and device R93.2, Abnormal findings on diagnostic imaging of liver and biliary tract CPT copyright 2019 [employer]. All rights reserved. The codes documented in this report are preliminary and upon supervisor porcelain department review may be revised to meet current compliance requirements. Bin Pelletier MD Bin Pelletier MD 09/29/2020 8:42:06 AM Electronically signed by Bin Pelletier MD Number of Addenda: 0 Note Initiated On: 09/29/2020 7:33 AM Estimated Blood Loss: Estimated blood loss was minimal.
--- NOTE | 2020-09-29 08:46 | REP ---
INDICATION: COMMON BILE DUCT STENT REMOVAL,STONE REMOVAL. COMPARISON: 06/05/2020. TECHNIQUE: Multiple C-arm views performed during ERCP. FINDINGS: The initial image shows a stent in the distal common bile duct. Subsequent images show that the stent has been removed. The common bile duct is catheterized and contrast is injected. Catheter manipulation is performed. IMPRESSION: 27 seconds fluoroscopy time utilized. <Electronically signed by Bobby Jarvis > 09/29/20 0842
[2020-09-29] MEDS ORDERED: PROMETHAZINE INJ 25 MG/ML VIAL (J2550) IV PRN (09:00)
[2020-09-29] MEDS ORDERED: LR 500 ML IV ONE (09:05)
[2020-09-29 09:27] VITALS: BP 143/87
== END 2020-09-29 10:25 | disposition home or self-care (01) ==
LOC: M SDC 06:20
PROVIDERS: ATTEND Internal Medicine Gastroenterology
DX: R93.2 Abnormal findings on diagnostic imaging of liver and biliary tract (principal); K80.50 Calculus of bile duct without cholangitis or cholecystitis without obstruction; Z96.89 Presence of other specified functional implants; Z46.59 Encounter for fitting and adjustment of other gastrointestinal appliance and device; Z88.2 Allergy status to sulfonamides; F41.9 Anxiety disorder, unspecified; Z79.899 Other long term (current) drug therapy
CPT/HCPCS: 43262; 43264; 43275; 74330; 81025; J2250; J2405; J2765; J3010; Q9967

== ENCOUNTER → 2021-07-12 | Outpatient (REF) | payer OTHER ==
[~2021-07-12] MED LIST changes: -LIDOCAINE 1% MDV 20ML VIAL SQ PRN; -LR 1,000 ML IV ONE
[2021-07-13 11:31] LABS: HEMOGLOBIN 11.7 g/dl (12.0-15.5); MEAN CORPUSCULAR HEMOGLOBIN 28.8 pg (27.0-33.0); MEAN CORPUSCULAR HGB CONC 31.6 g/dl (32.0-36.5); MEAN CORPUSCULAR VOLUME 91.1 fl (80.0-96.0); PLATELET COUNT, AUTOMATED 231 10^3/uL (150-450); RED BLOOD COUNT 4.06 10^6/uL (4.00-5.40); WHITE BLOOD COUNT 6.3 10^3/uL (4.0-10.0)
[2021-07-13 11:58] LABS: ERYTHROCYTE SEDIMENTATION RATE 14 mm/hr (0-20)
[2021-07-13 13:39] LABS: ALBUMIN 3.6 GM/DL (3.2-5.2); BILIRUBIN,TOTAL 0.2 MG/DL (0.2-1.0); C REACTIVE PROTEIN QUANTITATIV 0.73 MG/DL (0.00-0.30); CALCIUM LEVEL 8.9 MG/DL (8.5-10.1); CREATININE FOR GFR 1.23 MG/DL (0.55-1.30); GLOMERULAR FILTRATION RATE 53.9 (>60); POTASSIUM SERUM 4.4 MEQ/L (3.5-5.1); TOTAL PROTEIN 6.9 GM/DL (6.4-8.2)
== END ==
LOC: M SFHCCLAY 15:08
PROVIDERS: ATTEND Family Medicine
DX: R10.11 Right upper quadrant pain (principal); R19.7 Diarrhea, unspecified

== ENCOUNTER → 2021-07-23 | Outpatient (CLI) | payer OTHER | LOC: M RAD 07:59 | PROVIDERS: ATTEND Family Medicine | DX: R10.11 Right upper quadrant pain (principal); Z90.49 Acquired absence of other specified parts of digestive tract ==

== ENCOUNTER → 2021-07-28 | Outpatient (REF) | payer OTHER ==
[2021-07-28 16:40] LABS: BLOOD UREA NITROGEN 10 MG/DL (7-18); CALCIUM LEVEL 8.7 MG/DL (8.5-10.1); CARBON DIOXIDE LEVEL 27 MEQ/L (21-32); CHLORIDE LEVEL 103 MEQ/L (98-107); CREATININE FOR GFR 0.83 MG/DL (0.55-1.30); GLOMERULAR FILTRATION RATE > 60.0 (>60); GLUCOSE, FASTING 137 MG/DL (70-100); POTASSIUM SERUM 3.8 MEQ/L (3.5-5.1); SODIUM LEVEL 135 MEQ/L (136-145)
== END ==
LOC: M SFHCCLAY 13:33
PROVIDERS: ATTEND Physician Assistant
DX: R79.89 Other specified abnormal findings of blood chemistry (principal)

== ENCOUNTER → 2021-08-04 | Outpatient (CLI) | payer OTHER ==
[~2021-08-04] MED LIST changes: +GASTROGRAFIN SOLUTION 30ML (Q9963) As Ordered ONE; +ISOVUE-370 76% 100ML VIAL As Ordered ONE
== END ==
LOC: M RAD 14:32
PROVIDERS: ATTEND Family Medicine
DX: R10.11 Right upper quadrant pain (principal); R93.89 Abnormal findings on diagnostic imaging of other specified body structures; Z90.49 Acquired absence of other specified parts of digestive tract
CPT/HCPCS: 74177; Q9963; Q9967

== ENCOUNTER → 2021-09-29 | Outpatient (CLI) | payer OTHER ==
[~2021-09-29] MED LIST changes: -GASTROGRAFIN SOLUTION 30ML (Q9963) As Ordered ONE; -ISOVUE-370 76% 100ML VIAL As Ordered ONE
== END ==
LOC: M RAD 17:01
PROVIDERS: ATTEND Physician Assistant
DX: S00.11XA Contusion of right eyelid and periocular area, initial encounter (principal); W18.30XA Fall on same level, unspecified, initial encounter; Y92.009 Unspecified place in unspecified non-institutional (private) residence as the place of occurrence of the external cause

== ENCOUNTER → 2021-11-02 | Outpatient (CLI) | payer OTHER | LOC: M OUTALCOH 08:04 | PROVIDERS: ATTEND Psychiatry & Neurology Psychiatry | DX: Z13.30 Encounter for screening examination for mental health and behavioral disorders, unspecified (principal) ==

== ENCOUNTER → 2021-11-23 | Outpatient (RCR) | payer OTHER | LOC: M OUTALCOH 11-10 15:58 | PROVIDERS: ATTEND Psychiatry & Neurology Psychiatry | DX: F10.10 Alcohol abuse, uncomplicated (principal) ==

== ENCOUNTER → 2021-12-23 | Outpatient (RCR) | payer OTHER | LOC: M OUTALCOH 12-02 15:54 | PROVIDERS: ATTEND Psychiatry & Neurology Psychiatry | DX: F10.10 Alcohol abuse, uncomplicated (principal) ==

== ENCOUNTER → 2022-01-12 | Outpatient (CLI) | payer MEDICAID | LOC: M PLALAB 12:02 | PROVIDERS: ATTEND Psychiatry & Neurology Psychiatry | DX: F10.20 Alcohol dependence, uncomplicated (principal) ==

== ENCOUNTER → 2022-01-12 | Outpatient (REF) | payer MEDICAID, OTHER | LOC: M SFHCPLAZ 16:47 | PROVIDERS: ATTEND Physician Assistant | DX: R30.0 Dysuria (principal) ==

== ENCOUNTER 2022-01-20 15:55 | Outpatient (RCR) | payer MEDICAID | END 2022-01-23 | LOC: M OUTALCOH 15:55 | PROVIDERS: ATTEND Psychiatry & Neurology Psychiatry | DX: F10.10 Alcohol abuse, uncomplicated (principal) ==

== ENCOUNTER 2022-02-21 16:00 | Outpatient (RCR) | payer MEDICAID | END 2022-02-23 | LOC: M OUTALCOH 16:00 | PROVIDERS: ATTEND Psychiatry & Neurology Psychiatry | DX: F10.10 Alcohol abuse, uncomplicated (principal) ==

== ENCOUNTER 2022-03-21 16:00 | Outpatient (RCR) | payer MEDICAID | END 2022-03-25 | LOC: M OUTALCOH 16:00 | PROVIDERS: ATTEND Psychiatry & Neurology Psychiatry | DX: F10.10 Alcohol abuse, uncomplicated (principal) ==

== ENCOUNTER → 2022-04-13 | Outpatient (REF) | payer MEDICAID, OTHER ==
[2022-04-14 13:32] LABS: GC DNA AMPLIFICATION NEGATIVE (NEGATIVE)
== END ==
LOC: M SFHCPLAZ 10:15
PROVIDERS: ATTEND Physician Assistant
DX: N89.8 Other specified noninflammatory disorders of vagina (principal)

== ENCOUNTER 2022-04-22 10:08 | Outpatient (RCR) | payer MEDICAID | END 2022-04-25 | LOC: M OUTALCOH 10:08 | PROVIDERS: ATTEND Psychiatry & Neurology Psychiatry | DX: F11.11 Opioid abuse, in remission (principal); F17.200 Nicotine dependence, unspecified, uncomplicated ==

== ENCOUNTER 2022-05-05 15:00 | Outpatient (RCR) | payer MEDICAID | END 2022-05-25 | LOC: M OUTALCOH 15:00 | PROVIDERS: ATTEND Psychiatry & Neurology Psychiatry | DX: F10.10 Alcohol abuse, uncomplicated (principal) ==

== ENCOUNTER → 2022-08-15 | Outpatient (CLI) | payer MEDICAID, OTHER ==
[2022-08-15 15:51] LABS: HEMATOCRIT 36.6 % (36.0-47.0); HEMOGLOBIN 11.8 g/dl (12.0-15.5); MEAN CORPUSCULAR HEMOGLOBIN 29.6 pg (27.0-33.0); MEAN CORPUSCULAR HGB CONC 32.2 g/dl (32.0-36.5); MEAN CORPUSCULAR VOLUME 91.7 fl (80.0-96.0); PLATELET COUNT, AUTOMATED 229 10^3/uL (150-450); RED BLOOD COUNT 3.99 10^6/uL (4.00-5.40); WHITE BLOOD COUNT 8.5 10^3/uL (4.0-10.0)
[2022-08-15 16:55] LABS: HIV 1&2 SCREEN CENTAUR NEGATIVE (NEGATIVE)
[2022-08-15 17:38] LABS: GC DNA AMPLIFICATION NEGATIVE (NEGATIVE)
== END ==
LOC: M PLALAB 13:44
PROVIDERS: ATTEND Advanced Practice Midwife
DX: Z34.81 Encounter for supervision of other normal pregnancy, first trimester (principal)

== ENCOUNTER 2022-09-23 06:40 | Emergency (ER) | payer OTHER ==
[~2022-09-23] VITALS: Ht 167.6 cm; Wt 111.7 kg
[2022-09-23 08:16] LABS: BASO # 0.1 10^3/uL (0.0-0.2); BASO % 0.6 % (0.0-1.0); EOS # 0.1 10^3/uL (0.0-0.5); EOS % 0.8 % (0.0-3.0); HEMATOCRIT 37.4 % (36.0-47.0); HEMOGLOBIN 12.1 g/dl (12.0-15.5); LYMPH # 1.7 10^3/uL (1.5-5.0); LYMPH % 19.9 % (24.0-44.0); MEAN CORPUSCULAR HEMOGLOBIN 29.4 pg (27.0-33.0); MEAN CORPUSCULAR HGB CONC 32.4 g/dl (32.0-36.5); MEAN CORPUSCULAR VOLUME 90.8 fl (80.0-96.0); MONO # 0.5 10^3/uL (0.0-0.8); MONO % 6.2 % (2.0-8.0); NEUTROPHILS % 70.8 % (36.0-66.0); PLATELET COUNT, AUTOMATED 207 10^3/uL (150-450); RED BLOOD COUNT 4.12 10^6/uL (4.00-5.40); WHITE BLOOD COUNT 8.4 10^3/uL (4.0-10.0)
[2022-09-23 08:22] LABS: AMORPHOUS SEDIMENT SMALL (NEGATIVE); APPEARANCE, URINE HAZY (CLEAR); BACTERIA, URINE AUTO 1+ (NEGATIVE); BILIRUBIN, URINE AUTO NEGATIVE (NEGATIVE); BLOOD, URINE BLOOD NEGATIVE (NEGATIVE); COLOR, URINE YELLOW (YELLOW); GLUCOSE, URINE (UA) AUTO NEGATIVE (NEGATIVE); KETONE, URINE AUTO NEGATIVE (NEGATIVE); LEUKOCYTE ESTERASE, URINE AUTO NEGATIVE (NEGATIVE); MUCUS, URINE SMALL (NEGATIVE); NITRITE, URINE AUTO NEGATIVE (NEGATIVE); PROTEIN, URINE AUTO NEGATIVE (NEGATIVE); RBC, URINE AUTO 0 /HPF (0-3); SPECIFIC GRAVITY URINE AUTO 1.024 (1.002-1.035); SQUAMOUS EPITHELIAL CELL UR AU 10 /HPF (0-6); UROBILINOGEN, URINE AUTO 0.2 mg/dL (0.0-2.0); WBC, URINE AUTO 2 /HPF (0-3)
[2022-09-23 08:34] LABS: LIPASE 24 U/L (12-53)
[2022-09-23 08:40] LABS: ALKALINE PHOSPHATASE 80 U/L (46-116); ALT/SGPT 52 U/L (7.0-40); AST/SGOT 28 U/L (<34); BILIRUBIN,DIRECT < 0.1 MG/DL (<0.4); BILIRUBIN,TOTAL 0.3 MG/DL (0.3-1.2); BLOOD UREA NITROGEN 11 MG/DL (9-23); CALCIUM LEVEL 8.9 MG/DL (8.5-10.1); CARBON DIOXIDE LEVEL 25 MMOL/L (20-31); CHLORIDE LEVEL 105 MMOL/L (98-107); CREATININE FOR GFR 0.66 MG/DL (0.55-1.30); GLOMERULAR FILTRATION RATE > 60.0 (>60); GLUCOSE, FASTING 79 MG/DL (60-100); SODIUM LEVEL 136 MMOL/L (136-145); TOTAL PROTEIN 5.9 G/DL (5.7-8.2)
[2022-09-23 08:54] LABS: HCG, SERUM QUANTITATIVE 23867.2 MIU/ML (<4.2)
[2022-09-23 09:38] LABS: GC DNA AMPLIFICATION NEGATIVE (NEGATIVE)
[2022-09-23 09:40] VITALS: BP 132/70
[2022-09-27] MEDS ORDERED: MULTTAB20 PO (17:26)
[2022-09-27] MEDS ORDERED: DICL500C PO (17:26)
[2022-09-27] MEDS ORDERED: ACET1TAB55 PO (17:28)
== END 2022-09-23 09:51 | disposition left against medical advice (07) ==
LOC: M ED 06:40
DX: Z53.21 Procedure and treatment not carried out due to patient leaving prior to being seen by health care provider (principal)

== ENCOUNTER → 2022-09-27 | Outpatient (CLI) | payer OTHER ==
[~2022-09-27] MED LIST changes: +ACET1TAB55 PO; +AMOX875T2 PO; +DICL500C PO; +MULTTAB20 PO
== END ==
LOC: M WHC 14:31
PROVIDERS: ATTEND Obstetrics & Gynecology
DX: O91.22 Nonpurulent mastitis associated with the puerperium (principal)

== ENCOUNTER → 2022-10-14 | Outpatient (CLI) | payer OTHER | LOC: M WHC 09:50 | PROVIDERS: ATTEND Obstetrics & Gynecology | DX: Z34.92 Encounter for supervision of normal pregnancy, unspecified, second trimester (principal); Z3A.19 19 weeks gestation of pregnancy ==

== ENCOUNTER → 2022-12-02 | Outpatient (CLI) | payer OTHER | LOC: M WHC 07:11 | PROVIDERS: ATTEND Advanced Practice Midwife | DX: Z34.82 Encounter for supervision of other normal pregnancy, second trimester (principal) ==

== ENCOUNTER → 2022-12-07 | Outpatient (REF) | payer OTHER | LOC: M PLALAB 13:05 | PROVIDERS: ATTEND Advanced Practice Midwife | DX: Z53.9 Procedure and treatment not carried out, unspecified reason (principal) ==

== ENCOUNTER → 2022-12-07 | Outpatient (CLI) | payer OTHER ==
[2022-12-07 10:18] LABS: HEMOGLOBIN 10.9 g/dl (12.0-15.5); MEAN CORPUSCULAR HEMOGLOBIN 29.8 pg (27.0-33.0); MEAN CORPUSCULAR VOLUME 90.2 fl (80.0-96.0); PLATELET COUNT, AUTOMATED 263 10^3/uL (150-450); RED BLOOD COUNT 3.66 10^6/uL (4.00-5.40); WHITE BLOOD COUNT 11.4 10^3/uL (4.0-10.0)
== END ==
LOC: M PLALAB 07:58
PROVIDERS: ATTEND Advanced Practice Midwife
DX: Z34.82 Encounter for supervision of other normal pregnancy, second trimester (principal); Z3A.00 Weeks of gestation of pregnancy not specified

== ENCOUNTER → 2022-12-23 | Outpatient (CLI) | payer OTHER | LOC: M WHC 06:44 | PROVIDERS: ATTEND Advanced Practice Midwife | DX: Z34.82 Encounter for supervision of other normal pregnancy, second trimester (principal) ==

== ENCOUNTER → 2023-01-06 | Outpatient (CLI) | payer OTHER | LOC: M WHC 08:16 | PROVIDERS: ATTEND Advanced Practice Midwife | DX: Z34.83 Encounter for supervision of other normal pregnancy, third trimester (principal); Z3A.31 31 weeks gestation of pregnancy ==

== ENCOUNTER → 2023-02-02 | Outpatient (CLI) | payer OTHER ==
[2023-02-02 17:37] LABS: HEMATOCRIT 31.7 % (36.0-47.0); HEMOGLOBIN 10.2 g/dl (12.0-15.5); MEAN CORPUSCULAR HEMOGLOBIN 29.1 pg (27.0-33.0); MEAN CORPUSCULAR HGB CONC 32.2 g/dl (32.0-36.5); MEAN CORPUSCULAR VOLUME 90.3 fl (80.0-96.0); PLATELET COUNT, AUTOMATED 293 10^3/uL (150-450); RED BLOOD COUNT 3.51 10^6/uL (4.00-5.40); WHITE BLOOD COUNT 11.1 10^3/uL (4.0-10.0)
[2023-02-02 17:38] LABS: TOTAL PROTEIN,RANDOM URINE 14.6 MG/DL (0.0-14.0)
[2023-02-02 17:42] LABS: URIC ACID 5.1 MG/DL (3.1-7.8)
[2023-02-02 17:44] LABS: LDH LACTATE DEHYDROGENASE 166 U/L (120-246)
[2023-02-02 17:45] LABS: ALT/SGPT 28 U/L (7.0-40); AST/SGOT 14 U/L (<34); BILIRUBIN,TOTAL 0.2 MG/DL (0.3-1.2); GLOMERULAR FILTRATION RATE > 60.0 (>60)
== END ==
LOC: M PLALAB 15:45
PROVIDERS: ATTEND Obstetrics & Gynecology
DX: Z01.30 Encounter for examination of blood pressure without abnormal findings (principal)

== ENCOUNTER → 2023-02-08 | Outpatient (REF) | payer OTHER | LOC: M PLALAB 15:05 | PROVIDERS: ATTEND Obstetrics & Gynecology | DX: Z34.80 Encounter for supervision of other normal pregnancy, unspecified trimester (principal) ==

== ENCOUNTER 2023-03-01 05:15 | Inpatient (IN) | payer OTHER ==
[~2023-03-01] VITALS: Ht 167.6 cm; Wt 132.0 kg
[2023-03-01] VITALS (7 sets, daily range): BP systolic 123–138; BP diastolic 72–89; O2SAT 96–99
[2023-03-01] MEDS ORDERED: LACTATED RINGER'S 1000 ML IV STA (05:29)
[2023-03-01] MEDS ORDERED: BICITRA 30ML SOLN UDC PO ONE (05:30)
[2023-03-01] MEDS ORDERED: ceFAZolin SOD 3 GM IV Place Holder IV ONE (05:30)
[2023-03-01] MEDS ORDERED: LR 1,000 ML IV SCH ×2 (05:30→09:00)
[2023-03-01] MEDS ORDERED: HOME MED LIST COMPLETE! XX SCH (05:35)
[2023-03-01] MEDS ORDERED: ceFAZolin SOD 2 GM in IV 1 EA IV ONE (05:40)
[2023-03-01] MEDS ORDERED: ceFAZolin SOD 1 GM in D5W MINI-BAG PLUS 50 ML IV ONE (05:40)
[2023-03-01 06:20] LABS: HEMATOCRIT 30.5 % (36.0-47.0); HEMOGLOBIN 9.8 g/dl (12.0-15.5); MEAN CORPUSCULAR HEMOGLOBIN 28.3 pg (27.0-33.0); MEAN CORPUSCULAR HGB CONC 32.1 g/dl (32.0-36.5); MEAN CORPUSCULAR VOLUME 88.2 fl (80.0-96.0); PLATELET COUNT, AUTOMATED 276 10^3/uL (150-450); RED BLOOD COUNT 3.46 10^6/uL (4.00-5.40); WHITE BLOOD COUNT 11.5 10^3/uL (4.0-10.0)
[2023-03-01] MEDS ORDERED: KETOROLAC 60MG 2ML VIAL As Ordered ONE (07:15)
[2023-03-01] MEDS ORDERED: fentaNYL 100 MCG/2 ML INJECTION As Ordered ONE (07:15)
[2023-03-01] MEDS ORDERED: OXYTOCIN INJ 10UNITS/ML 1ML VIAL As Ordered ONE (07:15)
[2023-03-01] MEDS ORDERED: ONDANSETRON 4MG 2ML VIAL As Ordered ONE (07:15)
[2023-03-01] MEDS ORDERED: MORPHINE PRES-FREE INJ 10 MG/10 ML VIAL As Ordered ONE (07:17)
[2023-03-01] MEDS ORDERED: ePHEDrine SULFATE 25 MG/5 ML(5MG/ML) SYRINGE As Ordered ONE (07:48)
[2023-03-01] MEDS ORDERED: SIMETHICONE 80MG CHEW TAB PO PRN (09:00)
[2023-03-01] MEDS: PRENATAL VITAMINS CHEWABLE TABLET PO SCH (09:00)
[2023-03-01] MEDS ORDERED: diphenhydrAMINE 50MG/ML VIAL IV PRN ×2 (09:00→20:00)
[2023-03-01] MEDS ORDERED: OXYTOCIN DRIP 30 UNITS in IV 1 EA IV SCH (09:00)
[2023-03-01] MEDS ORDERED: fentaNYL 100 MCG/2 ML INJECTION IV PRN (09:00)
[2023-03-01] MEDS ORDERED: METOCLOPRAMIDE INJ 10MG/2ML VIAL IV PRN (09:00)
[2023-03-01] MEDS ORDERED: ONDANSETRON 4MG 2ML VIAL IV PRN (09:00)
[2023-03-01] MEDS ORDERED: **NOTE PATIENT COMMENT** MISC XX SCH (09:00)
[2023-03-01] MEDS ORDERED: RHOGAM 300MCG (1500IU) INJ IM SCH (09:00)
[2023-03-01] MEDS ORDERED: NALOXONE INJ 0.4MG/1ML VIAL IV PRN ×2 (09:00)
[2023-03-01] MEDS ORDERED: DOCUSATE SODIUM 100MG CAPSULE PO PRN (09:00)
[2023-03-01] MEDS ORDERED: oxyCODONE 5MG TAB PO PRN ×2 (09:00)
[2023-03-01] MEDS ORDERED: SLF 3 ML SYR IV SCH (09:00)
[2023-03-01] MEDS ORDERED: OXYTOCIN 30UNITS IN 0.9% NaCl 500ML IV BAG As Ordered ONE (09:09)
[2023-03-01] MEDS: ACETAMINOPHEN 500 MG TAB PO SCH ×3 (10:00→22:55)
[2023-03-01] MEDS ORDERED: KETOROLAC 30 MG/ML 1ML VIAL IV SCH (15:00)
[2023-03-01] MEDS: KETOROLAC 30 MG/ML 1ML VIAL IV SCH (22:55)
[2023-03-02] VITALS (7 sets, daily range): BP systolic 125–137; BP diastolic 61–89; TEMP 97; O2SAT 96–100
[2023-03-02] MEDS: KETOROLAC 30 MG/ML 1ML VIAL IV SCH (04:55)
[2023-03-02] MEDS: ACETAMINOPHEN 500 MG TAB PO SCH ×4 (04:56→22:07)
[2023-03-02 07:11] LABS: HEMATOCRIT 25.3 % (36.0-47.0); MEAN CORPUSCULAR HEMOGLOBIN 28.1 pg (27.0-33.0); MEAN CORPUSCULAR HGB CONC 31.6 g/dl (32.0-36.5); MEAN CORPUSCULAR VOLUME 88.8 fl (80.0-96.0); PLATELET COUNT, AUTOMATED 206 10^3/uL (150-450); RED BLOOD COUNT 2.85 10^6/uL (4.00-5.40); WHITE BLOOD COUNT 9.9 10^3/uL (4.0-10.0)
[2023-03-02] MEDS: PRENATAL VITAMINS CHEWABLE TABLET PO SCH (10:21)
[2023-03-02] MEDS: IBUPROFEN 600MG TAB PO SCH ×4 (11:00→22:57)
[2023-03-02] MEDS ORDERED: OXYC-517 PO (11:04)
[2023-03-02] MEDS ORDERED: IBUP-1022 PO (11:04)
[2023-03-02] MEDS ORDERED: ACET-683 PO (11:04)
[2023-03-02] MEDS ORDERED: COLA100C5 PO (11:04)
[2023-03-02] MEDS: oxyCODONE 5MG TAB PO PRN ×2 (15:23→21:20)
[2023-03-03 02:00] VITALS: BP 138/71; O2SAT 98
[2023-03-03] MEDS: ACETAMINOPHEN 500 MG TAB PO SCH ×4 (04:01→22:38)
[2023-03-03] MEDS: oxyCODONE 5MG TAB PO PRN (04:01)
[2023-03-03 05:53] VITALS: BP 147/76; O2SAT 98
[2023-03-03] MEDS: IBUPROFEN 600MG TAB PO SCH ×4 (05:56→22:36)
[2023-03-03] MEDS ORDERED: MEASLES,MUMPS,RUBELLA VACCINE INJ (MMR-II) SC.IMMUN ONE (09:00)
[2023-03-03] MEDS: PRENATAL VITAMINS CHEWABLE TABLET PO SCH (09:49)
[2023-03-03] MEDS: OXYMETAZOLINE 0.05% NASAL SPRAY (AFRIN) SCH ×2 (12:51→21:26)
[2023-03-03] MEDS: LORATADINE 10 MG TAB PO SCH (12:52)
[2023-03-03 13:00] VITALS: BP 142/89; O2SAT 100
[2023-03-03 14:00] VITALS: BP 141/84; O2SAT 97
[2023-03-03 18:00] VITALS: BP 136/71; O2SAT 99
[2023-03-03 22:00] VITALS: BP 137/85; O2SAT 100
[2023-03-04 02:00] VITALS: BP 108/71; O2SAT 100
[2023-03-04] MEDS: ACETAMINOPHEN 500 MG TAB PO SCH ×2 (04:28→09:44)
[2023-03-04] MEDS: IBUPROFEN 600MG TAB PO SCH (04:29)
[2023-03-04 05:55] VITALS: BP 140/81; O2SAT 100
[2023-03-04] MEDS: PRENATAL VITAMINS CHEWABLE TABLET PO SCH (09:00)
[2023-03-04] MEDS: OXYMETAZOLINE 0.05% NASAL SPRAY (AFRIN) SCH (09:00)
[2023-03-04] MEDS: LORATADINE 10 MG TAB PO SCH (09:43)
[2023-03-04 10:00] VITALS: BP 158/78; O2SAT 100
== END 2023-03-04 10:35 | disposition home or self-care (01) | DRG 540 ==
LOC: M LDI 05:15 → M OBS 11:33
PROVIDERS: ADMIT Obstetrics & Gynecology; ATTEND Obstetrics & Gynecology
PROC: 10D00Z1 Extraction of Products of Conception, Low, Open Approach (ICD-10-PCS; principal; 2023-03-01 07:30)
DX: O32.1XX0 Maternal care for breech presentation, not applicable or unspecified (principal); R60.9 Edema, unspecified; Z37.0 Single live birth; Z3A.39 39 weeks gestation of pregnancy; Z88.2 Allergy status to sulfonamides

== ENCOUNTER → 2023-06-27 | Outpatient (CLI) | payer OTHER ==
[~2023-06-27] MED LIST changes: +ACET-683 PO; +COLA100C5 PO; +IBUP-1022 PO; +OXYC-517 PO
[2023-06-27 08:24] LABS: BASO # 0.1 10^3/uL (0.0-0.2); EOS # 0.2 10^3/uL (0.0-0.5); EOS % 2.9 % (0.0-3.0); HEMATOCRIT 37.4 % (36.0-47.0); HEMOGLOBIN 11.4 g/dl (12.0-15.5); LYMPH # 2.1 10^3/uL (1.5-5.0); LYMPH % 35.9 % (24.0-44.0); MEAN CORPUSCULAR HEMOGLOBIN 25.6 pg (27.0-33.0); MEAN CORPUSCULAR HGB CONC 30.5 g/dl (32.0-36.5); MEAN CORPUSCULAR VOLUME 83.9 fl (80.0-96.0); MONO # 0.4 10^3/uL (0.0-0.8); MONO % 5.9 % (2.0-8.0); NEUTROPHILS # 3.1 10^3/uL (1.5-8.5); NEUTROPHILS % 51.9 % (36.0-66.0); PLATELET COUNT, AUTOMATED 284 10^3/uL (150-450); RED BLOOD COUNT 4.46 10^6/uL (4.00-5.40); WHITE BLOOD COUNT 5.9 10^3/uL (4.0-10.0)
[2023-06-27 08:29] LABS: HEMOGLOBIN A1c 5.5 % (4.0-6.0)
[2023-06-27 08:56] LABS: ALBUMIN 3.5 G/DL (3.2-5.2); ALKALINE PHOSPHATASE 109 U/L (46-116); ALT/SGPT 17 U/L (7.0-40); AST/SGOT 10 U/L (<34); BILIRUBIN,TOTAL 0.2 MG/DL (0.3-1.2); BLOOD UREA NITROGEN 19 MG/DL (9-23); CALCIUM LEVEL 8.8 MG/DL (8.5-10.1); CARBON DIOXIDE LEVEL 28 MMOL/L (20-31); CHLORIDE LEVEL 108 MMOL/L (98-107); CREATININE FOR GFR 0.83 MG/DL (0.55-1.30); GLOMERULAR FILTRATION RATE > 60.0 (>60); GLUCOSE, FASTING 86 MG/DL (60-100); POTASSIUM SERUM 4.4 MMOL/L (3.5-5.1); SODIUM LEVEL 142 MMOL/L (136-145); TOTAL IRON BINDING CAPACITY 333 UG/DL (250-425); TOTAL PROTEIN 6.4 G/DL (5.7-8.2)
[2023-06-27 08:59] LABS: FERRITIN 5.7 NG/ML (7.3-270.7)
[2023-06-27 09:00] LABS: THYROID STIMULATING HORMONE 2.344 uIU/ML (0.55-4.78)
[2023-06-27 09:01] LABS: FOLATE 14.4 NG/ML (>5.4)
[2023-06-27 09:02] LABS: VITAMIN B12 LEVEL 365 PG/ML (211-911)
[2023-06-28 17:07] LABS: IRON (FE) 29 UG/DL (50-170); PERCENT SATURATION 8.7 % (13.2-45.0)
== END ==
LOC: M LAB 07:16
PROVIDERS: ATTEND Psychiatry & Neurology Neurology
DX: D64.9 Anemia, unspecified (principal); G62.9 Polyneuropathy, unspecified; E03.9 Hypothyroidism, unspecified; G25.81 Restless legs syndrome; E11.9 Type 2 diabetes mellitus without complications

== ENCOUNTER → 2023-07-11 | Outpatient (REF) | payer OTHER | LOC: M SFHCWAGY 15:27 | PROVIDERS: ATTEND Obstetrics & Gynecology | DX: Z12.4 Encounter for screening for malignant neoplasm of cervix (principal) ==

== ENCOUNTER 2023-10-16 08:29 | Emergency (ER) | payer OTHER ==
[~2023-10-16] VITALS: Ht 167.6 cm; Wt 131.5 kg
[2023-10-16] MEDS ORDERED: VENL75CA47 (08:51)
[2023-10-16] MEDS ORDERED: TIZA10TA (08:51)
[2023-10-16] MEDS ORDERED: ROPI2TAB46 (08:51)
[2023-10-16] MEDS: methylPREDNISolone 125MG 2ML VIAL IV ONE (12:26)
[2023-10-16] MEDS: diazePAM 10MG/2ML SYRINGE IV ONE ×2 (12:26→14:50)
[2023-10-16] MEDS: KETOROLAC 30 MG/ML 1ML VIAL IV ONE (12:27)
[2023-10-16 12:59] LABS: BASO # 0.1 10^3/uL (0.0-0.2); EOS # 0.1 10^3/uL (0.0-0.5); EOS % 1.6 % (0.0-3.0); HEMATOCRIT 35.6 % (36.0-47.0); HEMOGLOBIN 11.3 g/dl (12.0-15.5); LYMPH # 2.9 10^3/uL (1.5-5.0); LYMPH % 32.3 % (24.0-44.0); MEAN CORPUSCULAR HGB CONC 31.7 g/dl (32.0-36.5); MEAN CORPUSCULAR VOLUME 85.2 fl (80.0-96.0); MONO # 0.6 10^3/uL (0.0-0.8); MONO % 6.9 % (2.0-8.0); NEUTROPHILS # 4.9 10^3/uL (1.5-8.5); NEUTROPHILS % 55.6 % (36.0-66.0); PLATELET COUNT, AUTOMATED 258 10^3/uL (150-450); RED BLOOD COUNT 4.18 10^6/uL (4.00-5.40); WHITE BLOOD COUNT 8.9 10^3/uL (4.0-10.0)
[2023-10-16 13:18] LABS: BLOOD UREA NITROGEN 15 MG/DL (9-23); CALCIUM LEVEL 8.6 MG/DL (8.5-10.1); CARBON DIOXIDE LEVEL 26 MMOL/L (20-31); CHLORIDE LEVEL 104 MMOL/L (98-107); CREATININE FOR GFR 0.74 MG/DL (0.55-1.30); GLOMERULAR FILTRATION RATE > 60.0 (>60); GLUCOSE, FASTING 86 MG/DL (60-100); POTASSIUM SERUM 4.5 MMOL/L (3.5-5.1); SODIUM LEVEL 135 MMOL/L (136-145)
[2023-10-16 13:32] LABS: ERYTHROCYTE SEDIMENTATION RATE 14 mm/hr (0-20)
[2023-10-16] MEDS ORDERED: MEDR4PAK PO (14:45)
[2023-10-16] MEDS ORDERED: META1TAB22 PO (14:45)
[2023-10-16 15:03] VITALS: BP 129/81; TEMP 97.2; O2SAT 99
== END 2023-10-16 15:06 | disposition home or self-care (01) ==
LOC: M ED 08:29
DX: M54.50 Low back pain, unspecified (principal); M62.830 Muscle spasm of back; Z88.2 Allergy status to sulfonamides; Z79.1 Long term (current) use of non-steroidal anti-inflammatories (NSAID); Z79.899 Other long term (current) drug therapy
CPT/HCPCS: 80048; 85025; 85652; 86140; 96374; 96375; 96376; 99284; J1885; J2919; J3360

== ENCOUNTER → 2023-10-31 | Outpatient (REF) | payer OTHER ==
[~2023-10-31] MED LIST changes: +MEDR4PAK PO; +META1TAB22 PO; +ROPI2TAB46; +TIZA10TA; +VENL75CA47
[2023-10-31 18:32] LABS: ALBUMIN 3.6 G/DL (3.2-5.2); ALKALINE PHOSPHATASE 118 U/L (46-116); ALT/SGPT 24 U/L (7.0-40); AST/SGOT 11 U/L (<34); BILIRUBIN,TOTAL 0.2 MG/DL (0.3-1.2); BLOOD UREA NITROGEN 19 MG/DL (9-23); CALCIUM LEVEL 9.2 MG/DL (8.5-10.1); CARBON DIOXIDE LEVEL 26 MMOL/L (20-31); CHLORIDE LEVEL 107 MMOL/L (98-107); GLOMERULAR FILTRATION RATE > 60.0 (>60); GLUCOSE, FASTING 83 MG/DL (60-100); POTASSIUM SERUM 4.5 MMOL/L (3.5-5.1); SODIUM LEVEL 139 MMOL/L (136-145); TOTAL PROTEIN 6.9 G/DL (5.7-8.2)
== END ==
LOC: M SFHCCLAY 13:25
PROVIDERS: ATTEND Nurse Practitioner Family
DX: R93.89 Abnormal findings on diagnostic imaging of other specified body structures (principal)

== ENCOUNTER → 2023-11-10 | Outpatient (CLI) | payer OTHER ==
[~2023-11-10] MED LIST changes: +PROHANCE 279.3MG/ML 15ML VIAL ONE; +PROHANCE 279.3MG/ML 5ML VIAL ONE
== END ==
LOC: M PLAIMG 13:07
PROVIDERS: ATTEND Nurse Practitioner Family
DX: R93.89 Abnormal findings on diagnostic imaging of other specified body structures (principal)
CPT/HCPCS: 72157; A9576

== ENCOUNTER → 2024-04-03 | Outpatient (REF) | payer OTHER ==
[~2024-04-03] MED LIST changes: -PROHANCE 279.3MG/ML 15ML VIAL ONE; -PROHANCE 279.3MG/ML 5ML VIAL ONE
[2024-04-03 18:10] LABS: FERRITIN 12.6 NG/ML (7.3-270.7); FOLATE 16.31 NG/ML (>5.4); THYROID STIMULATING HORMONE 1.193 uIU/ML (0.55-4.78)
[2024-04-03 18:11] LABS: ALBUMIN 3.9 G/DL (3.2-5.2); ALKALINE PHOSPHATASE 95 U/L (46-116); ALT/SGPT 15 U/L (7.0-40); AST/SGOT < 8 U/L (<34); BILIRUBIN,TOTAL 0.4 MG/DL (0.3-1.2); BLOOD UREA NITROGEN 16 MG/DL (9-23); CALCIUM LEVEL 9.5 MG/DL (8.5-10.1); CARBON DIOXIDE LEVEL 26 MMOL/L (20-31); CHLORIDE LEVEL 108 MMOL/L (98-107); CREATININE FOR GFR 0.92 MG/DL (0.55-1.30); GLOMERULAR FILTRATION RATE > 60.0 (>60); GLUCOSE, FASTING 88 MG/DL (60-100); MAGNESIUM LEVEL 2.2 MG/DL (1.8-2.4); POTASSIUM SERUM 4.8 MMOL/L (3.5-5.1); RHEUMATOID FACTOR QUANT 6.1 IU/ML (<14); SODIUM LEVEL 140 MMOL/L (136-145); TOTAL IRON BINDING CAPACITY 336 UG/DL (250-425); VITAMIN B12 LEVEL 308 PG/ML (211-911)
[2024-04-03 18:12] LABS: FREE T4 1.05 NG/DL (0.89-1.76); IRON (FE) 43 UG/DL (50-170); PERCENT SATURATION 12.8 % (13.2-45.0)
[2024-04-03 18:19] LABS: BASO # 0.1 10^3/uL (0.0-0.2); BASO % 0.8 % (0.0-1.0); EOS # 0.2 10^3/uL (0.0-0.5); EOS % 2.2 % (0.0-3.0); HEMATOCRIT 39.6 % (36.0-47.0); HEMOGLOBIN 12.2 g/dl (12.0-15.5); LYMPH # 2.1 10^3/uL (1.5-5.0); LYMPH % 26.2 % (24.0-44.0); MEAN CORPUSCULAR HEMOGLOBIN 27.1 pg (27.0-33.0); MEAN CORPUSCULAR HGB CONC 30.8 g/dl (32.0-36.5); MEAN CORPUSCULAR VOLUME 87.8 fl (80.0-96.0); MONO # 0.5 10^3/uL (0.0-0.8); MONO % 6.6 % (2.0-8.0); NEUTROPHILS # 4.9 10^3/uL (1.5-8.5); NEUTROPHILS % 61.9 % (36.0-66.0); PLATELET COUNT, AUTOMATED 262 10^3/uL (150-450); RED BLOOD COUNT 4.51 10^6/uL (4.00-5.40); WHITE BLOOD COUNT 7.9 10^3/uL (4.0-10.0)
[2024-04-03 18:29] LABS: ERYTHROCYTE SEDIMENTATION RATE 21 mm/hr (0-20)
[2024-04-03 18:31] LABS: HEMOGLOBIN A1c 5.4 % (4.0-6.0)
== END ==
LOC: M SFHCCLAY 09:15
PROVIDERS: ATTEND Nurse Practitioner Family
DX: M54.42 Lumbago with sciatica, left side (principal); F41.9 Anxiety disorder, unspecified; R53.83 Other fatigue; R51.9 Headache, unspecified; R41.3 Other amnesia; M25.50 Pain in unspecified joint; R06.83 Snoring

== ENCOUNTER → 2024-04-08 | Outpatient (CLI) | payer OTHER | LOC: M RAD 15:39 | PROVIDERS: ATTEND Nurse Practitioner Family | DX: R51.9 Headache, unspecified (principal); R41.3 Other amnesia ==

== ENCOUNTER → 2025-01-13 | Outpatient (REF) | payer OTHER ==
[~2025-01-13] MED LIST changes: +META-10 PO; -META1TAB22 PO
[2025-01-13 11:21] LABS: APPEARANCE, URINE CLEAR (CLEAR); BACTERIA, URINE AUTO 1+ (NEGATIVE); BILIRUBIN, URINE AUTO NEGATIVE (NEGATIVE); BLOOD, URINE BLOOD NEGATIVE (NEGATIVE); GLUCOSE, URINE (UA) AUTO NEGATIVE (NEGATIVE); KETONE, URINE AUTO NEGATIVE (NEGATIVE); LEUKOCYTE ESTERASE, URINE AUTO NEGATIVE (NEGATIVE); NITRITE, URINE AUTO NEGATIVE (NEGATIVE); PROTEIN, URINE AUTO NEGATIVE (NEGATIVE); RBC, URINE AUTO 0 /HPF (0-3); SPECIFIC GRAVITY URINE AUTO 1.006 (1.002-1.035); SQUAMOUS EPITHELIAL CELL UR AU 0 /HPF (0-6); UROBILINOGEN, URINE AUTO 0.2 mg/dL (0.0-2.0); WBC, URINE AUTO 1 /HPF (0-3)
== END ==
LOC: M SFHCWAGY 10:26
PROVIDERS: ATTEND Advanced Practice Midwife
DX: R30.0 Dysuria (principal)

== ENCOUNTER 2025-01-24 17:44 | Outpatient (CLI) | payer OTHER ==
[~2025-01-24] VITALS: Ht 167.6 cm; Wt 133.4 kg
[~2025-01-24 17:44] MED LIST changes: -PRENTAB9 PO
[2025-01-24] MEDS ORDERED: PRENTAB9 PO (18:12)
[2025-01-24] MEDS ORDERED: HOME MED LIST COMPLETE! XX SCH (18:15)
[2025-01-24 18:17] VITALS: BP 121/81
[2025-01-24 19:42] LABS: PLATELET COUNT, AUTOMATED 233 10^3/uL (150-450)
[2025-01-24 20:14] LABS: ALT/SGPT 51 U/L (7.0-40); AST/SGOT 26 U/L (<34); CALCIUM LEVEL 9.2 MG/DL (8.5-10.1); CARBON DIOXIDE LEVEL 24 MMOL/L (20-31); CHLORIDE LEVEL 106 MMOL/L (98-107); CREATININE FOR GFR 0.68 MG/DL (0.55-1.30); GLOMERULAR FILTRATION RATE > 90.0 (>60); POTASSIUM SERUM 4.4 MMOL/L (3.5-5.1); SODIUM LEVEL 141 MMOL/L (136-145)
[2025-01-27 13:47] LABS: CARDIOLIPIN IGA ANTIBODY < 2.0 APL-U/mL (<20.0); CARDIOLIPIN IGG ANTIBODY < 2.0 GPL-U/mL (<20.0); CARDIOLIPIN IGM ANTIBODY < 2.0 MPL-U/mL (<20.0)
== END 2025-01-24 21:15 | disposition home or self-care (01) ==
LOC: M LDO 17:44
PROVIDERS: ATTEND Advanced Practice Midwife
DX: O36.22X0 Maternal care for hydrops fetalis, second trimester, not applicable or unspecified (principal); O09.522 Supervision of elderly multigravida, second trimester; O34.219 Maternal care for unspecified type scar from previous cesarean delivery; Z3A.19 19 weeks gestation of pregnancy
CPT/HCPCS: 36415; 59025; 80053; 85027; 85460; 85613; 85730; 86146; 86147; 86777; 86778; 86850; 86900; 86901; G0463

== ENCOUNTER → 2025-01-24 | Outpatient (CLI) | payer OTHER ==
[~2025-01-24] MED LIST changes: +PRENTAB9 PO
== END ==
LOC: M WHC 14:33
PROVIDERS: ATTEND Advanced Practice Midwife
DX: Z34.82 Encounter for supervision of other normal pregnancy, second trimester (principal); Z3A.19 19 weeks gestation of pregnancy

== ENCOUNTER 2025-01-28 07:23 | Outpatient (CLI) | payer OTHER ==
[~2025-01-28] VITALS: Ht 167.6 cm; Wt 130.8 kg
[~2025-01-28 07:23] MED LIST changes: +PRENTAB9 PO
[2025-01-28 07:50] VITALS: BP 129/80; O2SAT 99
[2025-01-28 08:05] VITALS: BP 143/92
[2025-01-28 08:17] VITALS: BP 112/63
[2025-01-28 08:31] VITALS: BP 116/61
[2025-01-28] MEDS: ACETAMINOPHEN 500 MG TAB PO ONE (08:45)
[2025-01-28 08:46] VITALS: BP 122/71
== END 2025-01-28 10:36 | disposition home or self-care (01) ==
LOC: M LDO 07:23
PROVIDERS: ATTEND Obstetrics & Gynecology
DX: O26.892 Other specified pregnancy related conditions, second trimester (principal); O34.219 Maternal care for unspecified type scar from previous cesarean delivery; O36.22X0 Maternal care for hydrops fetalis, second trimester, not applicable or unspecified; R51.9 Headache, unspecified; R06.02 Shortness of breath; Z3A.20 20 weeks gestation of pregnancy

== ENCOUNTER → 2025-03-27 | Outpatient (CLI) | payer OTHER ==
[~2025-03-27] MED LIST changes: -IBUP-1022 PO; +IBUP600T42 PO
== END ==
LOC: M LAB 16:34
PROVIDERS: ATTEND Advanced Practice Midwife
DX: Z32.01 Encounter for pregnancy test, result positive (principal)

== ENCOUNTER → 2025-03-29 | Outpatient (CLI) | payer OTHER | LOC: M LAB 16:03 | PROVIDERS: ATTEND Advanced Practice Midwife | DX: Z32.01 Encounter for pregnancy test, result positive (principal) ==

== ENCOUNTER → 2025-04-29 | Outpatient (CLI) | payer OTHER | LOC: M SLEEP HO 10:42 | PROVIDERS: ATTEND Nurse Practitioner Family | DX: R06.83 Snoring (principal) ==

== ENCOUNTER → 2025-05-30 | Outpatient (CLI) | payer OTHER | LOC: M PLARAD 09:19 | PROVIDERS: ATTEND Neurological Surgery | DX: M53.3 Sacrococcygeal disorders, not elsewhere classified (principal); M54.42 Lumbago with sciatica, left side; G89.29 Other chronic pain; M54.41 Lumbago with sciatica, right side ==